=== PATIENT | female | born 1950 | race Caucasian/White ===

== ENCOUNTER 2016-10-14 17:18 | Emergency (ER) | payer BC ==
--- NOTE | 2016-10-14 17:55 | ERPHSYRPT ---
- History of Present Illness Source: patient Exam Limitations: no limitations Patient Subjective Stated Complaint: notified by transplant doctor that her potassium level was low. doctor wanted her evaluated by ed. Triage Nursing Assessment: ambulated to room per self. skin jaundiced, w/d. resp easy. patient denies any symptoms at this time Timing/Duration: today Severity: mild Associated Symptoms: denies symptoms Hx Tetanus, Diphtheria Vaccination/Date Given: No Hx Influenza Vaccination/Date Given: No Hx Pneumococcal Vaccination/Date Given: No <JOHN ROBERTS - Last Filed: 10/14/16 18:52> <NEREIDA VALDEZ - Last Filed: 10/15/16 01:56> - History of Present Illness Time Seen by Provider: 10/14/16 17:25 Physician History: Pt. is quite jaundiced with icteric sclera, but states this is old. (JOHN ROBERTS) Allergies/Adverse Reactions: No Known Drug Allergies Allergy (Verified 10/14/16 17:29) Home Medications: Folic Acid 0.8 mg PO DAILY 06/17/16 [History] Ropinirole 2Mg [Requip 2Mg Tab] 2 mg PO HS 06/17/16 [History] Bumetanide 1 mg [Bumex 1 mg] 1 mg PO BID 10/14/16 [History] PANTOPRAZOLE 40 mg Tablet [Protonix 40MG Tablet] 40 mg PO QPM 10/14/16 [ History] Potassium Chloride 20 Meq [Klor-Con 20 MEQ] 20 meq PO DAILY 10/14/16 [History] Rifaximin [Xifaxan] 550 mg PO BID 10/14/16 [History] Spironolactone [Aldactone] 50 mg PO DAILY 10/14/16 [History] - Review of Systems Constitutional: No Symptoms Eyes: Other (icteric sclera) Ears, Nose, & Throat: No Symptoms Respiratory: No Symptoms Cardiac: No Symptoms Abdominal/Gastrointestinal: No Symptoms Musculoskeletal: No Symptoms Skin: Other (jaundiced) Psychological: No Symptoms Endocrine: No Symptoms Hematologic/Lymphatic: No Symptoms Immunological/Allergic: No Symptoms <JOHN ROBERTS - Last Filed: 10/14/16 18:52> - Past Medical History Pertinent Past Medical History: Yes Neurological History: No Pertinent History ENT History: No Pertinent History Cardiac History: No Pertinent History Respiratory History: No Pertinent History Endocrine Medical History: No Pertinent History Musculoskeletal History: No Pertinent History GI Medical History: Cirrhosis Other Medical History: RESTLESS LEG SYNDROME. hemolytic anemia - Past Surgical History Past Surgical History: Yes Musculoskeletal: Orthopedic Surgery Female Surgical History: Hysterectomy Other Surgical History: rotater cuff right shoulder - Social History Smoking Status: Never smoker Exposure to second hand smoke: Yes Drug Use: none Patient Lives Alone: No <JOHN ROBERTS - Last Filed: 10/14/16 18:52> - Physical Exam General Appearance: no apparent distress Eye Exam: scleral icterus Ears, Nose, Throat Exam: normal ENT inspection Neck Exam: normal inspection, supple, full range of motion Respiratory Exam: normal breath sounds, lungs clear Cardiovascular Exam: regular rate/rhythm, normal heart sounds, normal peripheral pulses Gastrointestinal/Abdomen Exam: soft, normal bowel sounds Extremity Exam: normal inspection, normal range of motion, pelvis stable Neurologic Exam: alert, oriented x 3, cooperative, normal mood/affect Skin Exam: warm, dry, jaundice SpO2 Interpretation: normal SpO2: 99 Oxygen Delivery: Room Air <JOHN ROBERTSBINS - Last Filed: 10/14/16 18:52> - Course Nursing assessment & vital signs reviewed: Yes EKG Interpreted by Me: RATE (82), Right Bundle Branch Block, Other (LAFB. No acute changes.) <ARMANDOJOHN ALDANABINS - Last Filed: 10/14/16 18:52> - Radiology Exams Chest X-ray Interpretation: Interpreted by me (INCREASED BRONCHOVASCULAR MARKINGS.) <NEREIDA VALDEZ - Last Filed: 10/15/16 01:56> Ordered Tests: Active Orders 24 hr Category Date Time Status EKG-ER Only STAT Care 10/14/16 17:52 Active IV Insertion STAT Care 10/14/16 18:01 Active CHEST 1 VIEW (PORTABLE) Stat Exams 10/14/16 17:52 Taken BMP Stat Lab 10/14/16 22:21 Completed BMP Stat Lab 10/15/16 01:31 Completed CBC W DIFF Stat Lab 10/14/16 18:36 Completed CMP Stat Lab 10/14/16 18:36 Completed MAGNESIUM Stat Lab 10/14/16 18:36 Completed MAGNESIUM Stat Lab 10/14/16 22:21 Completed MAGNESIUM Stat Lab 10/15/16 01:31 Completed PROTIME WITH INR Stat Lab 10/14/16 18:36 Completed Respiratory Nebulizer STAT RT 10/15/16 01:55 Active Medication Summary Generic Name Dose Route Start Last Admin Trade Name Serina PRN Reason Stop Dose Admin Potassium Chloride/Sodium Chloride 1,000 mls @ 500 mls/hr 10/14/16 19:30 23:24 Sodium Chloride 0.9% W/ 20 Meq Kcl/Liter IV 11/13/16 19:29 Not Given .Q2H KATIA Sodium Chloride 1,000 mls @ 50 mls/hr 10/14/16 22:45 10/14/16 22:58 Sodium Chloride 0.9% 1000 Ml IV 11/13/16 22:44 50 mls/hr .Q20H KATIA Administration Magnesium Oxide 400 mg 10/15/16 10:00 Mag-Ox 400 PO 11/14/16 09:59 BID KATIA Potassium Chloride 40 meq 10/15/16 10:00 10/14/16 22:54 Potassium Chl 40 Meq/30 Ml Oral Solution PO 11/14/16 09:59 40 meq DAILY KATAI Administration Discontinued Medications Generic Name Dose Route Start Last Admin Trade Name Serina PRN Reason Stop Dose Admin Magnesium Sulfate/Dextrose 100 mls @ 200 mls/hr 10/14/16 19:30 10/14/16 19:37 Magnesium 1 Gm / 100 Ml D5w IV 10/14/16 19:59 200 mls/hr STAT ONE Administration Magnesium Sulfate/Dextrose Confirm 10/14/16 19:37 Magnesium 1 Gm / 100 Ml D5w Administered 10/14/16 19:38 Dose 100 mls @ ud IV .STK-MED ONE Potassium Chloride/Sodium Chloride Confirm 10/14/16 19:37 Sodium Chloride 0.9% W/ 20 Meq Kcl/Liter Administered 10/14/16 19:38 Dose 1,000 mls @ ud IV .STK-MED ONE Magnesium Sulfate/Dextrose 100 mls @ 200 mls/hr 10/14/16 22:42 10/14/16 22:50 Magnesium 1 Gm / 100 Ml D5w IV 10/14/16 23:11 200 mls/hr STAT ONE Administration Potassium Chloride 100 mls @ 50 mls/hr 10/14/16 22:43 10/14/16 23:00 Potassium Chloride 20 Meq In Water 100ml IV 10/15/16 00:42 50 mls/hr STAT ONE Administration Magnesium Sulfate/Dextrose Confirm 10/14/16 22:47 Magnesium 1 Gm / 100 Ml D5w Administered 10/14/16 22:48 Dose 100 mls @ ud IV .STK-MED ONE Sodium Chloride Confirm 10/14/16 22:47 Sodium Chloride 0.9% 1000 Ml Administered 10/14/16 22:48 Dose 1,000 mls @ ud .ROUTE .STK-MED ONE Potassium Chloride Confirm 10/14/16 22:47 Potassium Chloride 20 Meq In Water 100ml Administered 10/14/16 22:48 Dose 100 mls @ ud IV .STK-MED ONE Potassium Chloride Confirm 10/14/16 22:59 Potassium Chloride 20 Meq In Water 100ml Administered 10/14/16 23:00 Dose 100 mls @ ud IV .STK-MED ONE Potassium Chloride/Sodium Chloride Confirm 10/14/16 23:27 Sodium Chloride 0.9% W/ 20 Meq Kcl/Liter Administered 10/14/16 23:28 Dose 1,000 mls @ ud IV .STK-MED ONE Potassium Chloride Confirm 10/14/16 22:47 Potassium Chl 40 Meq/30 Ml Oral Solution Administered 10/14/16 22:48 Dose 40 meq .ROUTE .STK-MED ONE Potassium Chloride 20 meq 10/15/16 01:49 Klor Con 10 Meq PO 10/15/16 01:50 STAT ONE Lab/Rad Data: Laboratory Result Diagrams 10/14/16 18:36 10/15/16 01:31 Laboratory Results 10/15/16 10/14/16 10/14/16 Range/Units 01:31 22:21 18:36 WBC (4.0-10.5) K/mm3 RBC (4.1-5.4) M/mm3 Hgb (12.0-16.0) gm/dl Hct (35-47) % MCV (78-100) fl MCH (26-32) pg MCHC (32-36) g/dl RDW (11.5-14.0) % Plt Count (150-450) K/mm3 MPV (6-9.5) fl Gran % (36.0-66.0) % Lymphocytes % (24.0-44.0) % Monocytes % (0.0-12.0) % Eosinophils % (0.00-5.0) % Basophils % (0.0-0.4) % Basophils # (0-0.4) INR (0.8-3.0) Sodium 137 137 (136-145) mEq/L Potassium 3.4 L 2.7 L* (3.5-5.1) mEq/L Chloride 101 100 (98-107) mEq/L Carbon Dioxide 26.7 27.7 (21-32) mEq/L Anion Gap 12.4 12.4 (5-15) MEQ/L BUN 12 12 (9-20) mg/dL Creatinine 1.35 H 1.33 H (0.55-1.30) mg/dl Estimated GFR 42 43 ML/MIN Glucose 151 H 150 H (70-110) MG/DL Calcium 6.6 L 6.6 L (8.5-10.1) mg/dL Magnesium 1.5 L 1.2 L 1.0 L* (1.8-2.4) mg/dL Total Bilirubin (0.2-1.0) mg/dL AST (15-37) U/L ALT (12-78) U/L Alkaline Phosphatase (46-116) U/L Serum Total Protein (6.4-8.2) gm/dL Albumin (3.4-5.0) g/dL 10/14/16 10/14/16 10/14/16 Range/Units 18:36 18:36 18:36 WBC 7.2 (4.0-10.5) K/mm3 RBC 2.53 L (4.1-5.4) M/mm3 Hgb 9.1 L (12.0-16.0) gm/dl Hct 26.4 L (35-47) % MCV 104.3 H (78-100) fl MCH 35.9 H (26-32) pg MCHC 34.5 (32-36) g/dl RDW 13.5 (11.5-14.0) % Plt Count 109 L (150-450) K/mm3 MPV 9.3 (6-9.5) fl Gran % 60.4 (36.0-66.0) % Lymphocytes % 19.9 L (24.0-44.0) % Monocytes % 15.9 H (0.0-12.0) % Eosinophils % 2.8 (0.00-5.0) % Basophils % 1.0 (0.0-0.4) % Basophils # 0.07 (0-0.4) INR 3.08 H (0.8-3.0) Sodium 136 (136-145) mEq/L Potassium 2.2 L* (3.5-5.1) mEq/L Chloride 96 L (98-107) mEq/L Carbon Dioxide 28.1 (21-32) mEq/L Anion Gap 14.1 (5-15) MEQ/L BUN 11 (9-20) mg/dL Creatinine 1.29 (0.55-1.30) mg/dl Estimated GFR 44 ML/MIN Glucose 154 H (70-110) MG/DL Calcium 7.0 L (8.5-10.1) mg/dL Magnesium (1.8-2.4) mg/dL Total Bilirubin 16.2 H (0.2-1.0) mg/dL AST 44 H (15-37) U/L ALT 15 (12-78) U/L Alkaline Phosphatase 116 (46-116) U/L Serum Total Protein 6.5 (6.4-8.2) gm/dL Albumin 2.2 L (3.4-5.0) g/dL - Progress Progress: unchanged <JOHN ROBERTS - Last Filed: 10/14/16 18:52> <NEREIDA VALDEZ - Last Filed: 10/15/16 01:56> - Progress Progress Note: 10/14/16 19:[address] VALDEZ 1908: SCLERA ICTERIC, EOMI, MOIST mm, LUNGS HAVE SCATTERED RHONCHI AND MINIMAL WHEEZING OVER ALL ROD, NO CARDIAC RUB, ABDOMINAL B.S. NORMAL WITH NO ABDOMINAL TENDERNESS, NO ANKLE EDEMA, ALERT & COOPERATIVE. 10/15/16 01:50 PT REFUSES HOSPITALIZATION. (NEREIDA VALDEZ) <JOHN ROBERTS - Last Filed: 10/14/16 18:52> - Departure Time of Disposition: 01:56 Departure Disposition: Home Critical Care Time: No <NEREIDA VALDEZ - Last Filed: 10/15/16 01:56> - Departure Clinical Impression: HYPOKALEMIA, HYPOMAGNESEMIA, BRONCHITIS, CIRRHOSIS Condition: Fair Referrals: MICHELE MILLER MD [Primary Care Provider] - Instructions: Hypokalemia, Bronchitis Additional Instructions: FOLLOW UP WITH PRIVATE DOCTOR TOMORROW. Prescriptions: Azithromycin 250 mg [Zithromax 250 MG TABLET] 250 mg PO ZPACK #6 tablet
[2016-10-14 18:41] LABS: Eosinophil % 2.8 % (0.00-5.0); Granulocytes % 60.4 % (36.0-66.0); Lymphocytes % 19.9 % (24.0-44.0); Mean Cell Volume 104.3 fl (78-100); Mean Corpuscular Hemoglobin 35.9 pg (26-32); Mean Platelet Volume 9.3 fl (6-9.5); Monocytes % 15.9 % (0.0-12.0); Platelet Count 109 K/mm3 (150-450); Red Blood Count 2.53 M/mm3 (4.1-5.4); Red Cell Distribution Width 13.5 % (11.5-14.0); White Blood Count 7.2 K/mm3 (4.0-10.5)
[2016-10-14 19:13] LABS: INR 3.08 (0.8-3.0); PROTIME 33.4 SECONDS (9.95-12.35)
[2016-10-14 19:23] LABS: ALBUMIN 2.2 g/dL (3.4-5.0); ANION GAP 14.1 MEQ/L (5-15); BILIRUBIN,TOTAL 16.2 mg/dL (0.2-1.0); Carbon Dioxide 28.1 mEq/L (21-32); Total Protein 6.5 gm/dL (6.4-8.2)
[2016-10-14 19:30] LABS: Potassium 2.2 mEq/L (3.5-5.1)
[2016-10-14] MEDS ORDERED: Magnesium 1 Gm / 100 Ml D5W*** 100 ML IV ONE ×4 (19:30→22:47)
[2016-10-14] MEDS ORDERED: Sodium Chloride 0.9% W/ 20 mEq KCl/LITER 1,000 ML IV ONE (19:37)
[2016-10-14] MEDS: Sodium Chloride 0.9% W/ 20 mEq KCl/LITER 1,000 ML IV SCH ×5 (19:38→23:24)
[2016-10-14 22:37] LABS: ANION GAP 12.4 MEQ/L (5-15); Carbon Dioxide 27.7 mEq/L (21-32); MAGNESIUM 1.2 mg/dL (1.8-2.4)
[2016-10-14 22:40] LABS: Potassium 2.7 mEq/L (3.5-5.1)
[2016-10-14] MEDS ORDERED: POTASSIUM CHLORIDE 20 mEq IN WATER 100ML 100 ML IV ONE ×2 (22:43→22:47)
[2016-10-14] MEDS ORDERED: Sodium Chloride 0.9% 1000 ML 1,000 ML IV SCH (22:45)
[2016-10-14] MEDS ORDERED: POTASSIUM CHL 40 MEQ/30 ML ORAL SOLUTION ONE (22:47)
[2016-10-14] MEDS ORDERED: Sodium Chloride 0.9% 1000 ML 1,000 ML ONE (22:47)
[2016-10-14] MEDS: POTASSIUM CHL 40 MEQ/30 ML ORAL SOLUTION PO SCH ×2 (22:49→22:54)
[2016-10-14] MEDS ORDERED: POTASSIUM CHLORIDE 20 mEq IN WATER 100ML 0 ML IV ONE (22:59)
[2016-10-14] MEDS ORDERED: Sodium Chloride 0.9% W/ 20 mEq KCl/LITER 0 ML IV ONE (23:27)
[2016-10-15 01:46] LABS: ANION GAP 12.4 MEQ/L (5-15); Carbon Dioxide 26.7 mEq/L (21-32); MAGNESIUM 1.5 mg/dL (1.8-2.4); Potassium 3.4 mEq/L (3.5-5.1)
[2016-10-15] MEDS ORDERED: Klor Con 10 MEQ PO ONE ×2 (01:49→01:55)
[2016-10-15] MEDS ORDERED: Zithromax 250 MG TABLET PO ONE (01:55)
[2016-10-15] MEDS ORDERED: PROVENTIL 2.5 MG/3 ML NEB IH ONE ×2 (01:55→02:00)
[2016-10-15] MEDS ORDERED: Zithromax 250 MG TABLET ONE (01:55)
[2016-10-15] MEDS ORDERED: MAG-OX 400 ONE (01:55)
[2016-10-15 03:07] VITALS: BP 86/55; PULSE 78; O2SAT 96
--- NOTE | 2016-10-15 08:39 | XRAY ---
Indication: Hypokalemia. Comparison: None Portable chest demonstrate right hemidiaphragm elevation with adjacent infiltrate/atelectasis and small hiatal hernia. Remaining heart and left lung unremarkable. Bony thorax intact with mild osteopenia and degenerative changes.
[2016-10-15] MEDS ORDERED: MAG-OX 400 PO SCH (10:00)
== END 2016-10-15 02:55 | disposition home or self-care (01) ==
LOC: ED 17:18
DX: E87.6 Hypokalemia (principal); E83.42 Hypomagnesemia; J40 Bronchitis, not specified as acute or chronic; K74.60 Unspecified cirrhosis of liver; R17 Unspecified jaundice; Z79.899 Other long term (current) drug therapy
CPT/HCPCS: 36000; 36415; 71010; 80048; 80053; 83735; 85025; 85610; 93005; 94640; 96360; 96361; 96365; 96366; 96367; 96368; 99285; J3475; J3480; A9270-GY

== ENCOUNTER 2016-12-05 23:39 | Emergency (ER) | payer BC ==
[2016-12-05] MEDS ORDERED: Pepcid 20 MG VIAL IV ONE (23:59)
[2016-12-05] MEDS ORDERED: Zofran 4 MG/2 ML VIAL IV ONE (23:59)
--- NOTE | 2016-12-06 00:05 | ERPHSYRPT ---
- History of Present Illness Time Seen by Provider: 12/05/16 23:54 Source: patient Physician History: CC: vomiting Hx: 66 y/o patient of Dr Miller with hx of alcohol cirrhosis. No alcohol use for the past year. Sees hepatology at [facility]. She has vomited some meds this week. Has profuse vomiting since 8PM tonite with dark colored black liquid. No real abd pain. No fever or chills. She is chronically jaundiced. She is hoping to enter the liver transplant list soon at [facility]. Timing/Duration: today Severity: severe Allergies/Adverse Reactions: No Known Drug Allergies Allergy (Verified 10/14/16 17:29) Home Medications: Folic Acid 0.8 mg PO DAILY 06/17/16 [History] Bumetanide 1 mg [Bumex 1 mg] 1 mg PO BID 10/14/16 [History] PANTOPRAZOLE 40 mg Tablet [Protonix 40MG Tablet] 40 mg PO QPM 10/14/16 [ History] Potassium Chloride 20 Meq [Klor-Con 20 MEQ] 20 meq PO DAILY 10/14/16 [History] Rifaximin [Xifaxan] 550 mg PO BID 10/14/16 [History] Spironolactone [Aldactone] 50 mg PO DAILY 10/14/16 [History] Lactulose 10 gm PO BID 12/06/16 [History] Magnesium [Magnesium Gluconate] 500 mg DAILY 12/06/16 [History] Metoprolol Tartrate 12.5 mg BID 12/06/16 [History] Ondansetron HCl [Zofran] 4 mg PO DAILY 12/06/16 [History] Ropinirole 2Mg [Requip 2Mg Tab] 1 tab HS 12/06/16 [History] Zinc Sulfate 1 tab BID 12/06/16 [History] Hx Tetanus, Diphtheria Vaccination/Date Given: No Hx Influenza Vaccination/Date Given: No Hx Pneumococcal Vaccination/Date Given: No - Review of Systems Constitutional: Fatigue, Malaise, Weakness, No Fever, No Chills Eyes: No Symptoms, No Vision Changes Ears, Nose, & Throat: No Symptoms Respiratory: No Cough, No Dyspnea Cardiac: No Chest Pain, No Syncope Abdominal/Gastrointestinal: Nausea, Vomiting, No Abdominal Pain Genitourinary Symptoms: No Dysuria Musculoskeletal: No Back Pain, No Neck Pain Skin: No Rash Neurological: No Headache All Other Systems: Reviewed and Negative - Past Medical History Pertinent Past Medical History: Yes Neurological History: No Pertinent History ENT History: No Pertinent History Cardiac History: No Pertinent History Respiratory History: No Pertinent History Endocrine Medical History: No Pertinent History Musculoskeletal History: No Pertinent History GI Medical History: Cirrhosis Other Medical History: RESTLESS LEG SYNDROME. hemolytic anemia - Past Surgical History Past Surgical History: Yes Musculoskeletal: Orthopedic Surgery Female Surgical History: Hysterectomy Other Surgical History: rotater cuff right shoulder - Social History Smoking Status: Never smoker Exposure to second hand smoke: Yes Drug Use: none Patient Lives Alone: No - Nursing Vital Signs Nursing Vital Signs: Initial Vital Signs Temperature 99 F Temperature Source Rectal Pulse Rate 126 Respiratory Rate 20 Blood Pressure [] 83/40 Pain Intensity 0 - Physical Exam General Appearance: alert Eye Exam: PERRL/EOMI, scleral icterus Ears, Nose, Throat Exam: normal ENT inspection, dry mucous membranes Neck Exam: normal inspection, non-tender, supple Respiratory Exam: normal breath sounds Cardiovascular Exam: regular rate/rhythm, murmur, tachycardia Gastrointestinal/Abdomen Exam: soft, No tenderness, No distention, No mass, No guarding Back Exam: normal inspection, normal range of motion Extremity Exam: normal inspection, normal range of motion Neurologic Exam: alert, oriented x 3, cooperative, sensation nml, No motor deficits Skin Exam: warm, jaundice - Course Nursing assessment & vital signs reviewed: Yes EKG Interpreted by Me: RATE (122), Sinus Tach, NORMAL AXIS, prolonged QT interval (QTc 497), Non-specific ST Changes (anterior ST depression) - Radiology Exams AAS X-ray Interpretation: Reviewed by me (CM, right atrial enlargement, nonspecific bowel gas, no free air) - CT Exams abd/pelvis CT Interpretation: Tele-radiologist Report (large hiatal hernia, cirrhotic liver with ascites and splenomegaly suggesting portal hypertension, colonic diverticulosis without itis) Ordered Tests: Active Orders 24 hr Category Date Time Status Cath for Specimen-Straight STAT Care 12/06/16 23:59 Active EKG-ER Only STAT Care 12/05/16 23:59 Active IV Insertion STAT Care 12/05/16 23:59 Active IV Insertion-2nd Peripheral STAT Care 12/06/16 00:50 Active NPO (ED) STAT Care 12/05/16 23:59 Active Obtain Stool Specimen ASORD Care 12/06/16 01:32 Active Oxygen-ED Only NASAL CANNULA 2 lpm Care 12/06/16 03:01 Active ABDOMEN AND PELVIS W/0 CONTRAS [CT] Stat Exams 12/06/16 01:03 Taken OBSTR/ACUTE ABDOMEN SERIES Stat Exams 12/06/16 00:00 Taken BLOOD CULTURE Stat Lab 12/06/16 01:22 Received BMP Stat Lab 12/05/16 23:59 Completed CBC Stat Lab 12/06/16 02:45 Completed CBC W DIFF Stat Lab 12/05/16 23:59 Completed CULTURE,URINE Stat Lab 12/06/16 00:45 Received Hepatic Function Panel Stat Lab 12/05/16 23:59 Completed LIPASE Stat Lab 12/05/16 23:59 Completed Lactic Acid Stat Lab 12/05/16 23:59 Completed Lactic Acid Stat Lab 12/06/16 01:47 Completed Lactic Acid Stat Lab 12/06/16 01:59 Ordered MAGNESIUM Stat Lab 12/06/16 00:05 Completed Occult Blood,Stool Other Stat Lab 12/06/16 01:20 Completed PROTIME WITH INR Stat Lab 12/05/16 23:59 Completed UA W/ MICROSCOPIC Stat Lab 12/06/16 00:45 Completed Medication Summary Generic Name Dose Route Start Last Admin Trade Name Freq PRN Reason Stop Dose Admin Pantoprazole Sodium 80 mg/ 500 mls @ 50 mls/hr 12/06/16 03:15 Sodium Chloride IV 01/05/17 03:14 .Q10H KATIA Discontinued Medications Generic Name Dose Route Start Last Admin Trade Name Freq PRN Reason Stop Dose Admin Famotidine 20 mg 12/05/16 23:59 12/06/16 00:11 Pepcid 20 Mg Vial IV 12/06/16 00:00 20 mg STAT ONE Administration Famotidine Confirm 12/06/16 00:09 Pepcid 20 Mg Vial Administered 12/06/16 00:10 Dose 20 mg IV .STK-MED ONE Sodium Chloride 500 mls @ 999 mls/hr 12/05/16 23:59 12/06/16 00:11 Sodium Chloride 0.9% 1000 Ml IV 12/06/16 00:29 999 mls/hr .Q31M STA Administration Sodium Chloride Confirm 12/06/16 00:09 Sodium Chloride 0.9% 1000 Ml Administered 12/06/16 00:10 Dose 1,000 mls @ ud .ROUTE .STK-MED ONE Ampicillin Sodium/Sulbactam Sodium 100 mls @ 100 mls/hr 12/06/16 01:05 01:50 Unasyn 1.5gm / Nacl 100ml IV 12/06/16 02:04 100 mls/hr STAT ONE Administration Sodium Chloride 1,000 mls @ 999 mls/hr 12/06/16 01:04 12/06/16 01:50 Sodium Chloride 0.9% 1000 Ml IV 12/06/16 02:04 999 mls/hr .Q1H1M STA Administration Sodium Chloride Confirm 12/06/16 01:36 Sodium Chloride 0.9% 1000 Ml Administered 12/06/16 01:37 Dose 1,000 mls @ ud .ROUTE .STK-MED ONE Ampicillin Sodium/Sulbactam Sodium Confirm 12/06/16 01:36 Unasyn 1.5gm / Nacl 100ml Administered 12/06/16 01:37 Dose 100 mls @ ud .ROUTE .STK-MED ONE Metoclopramide HCl 5 mg 12/06/16 02:42 12/06/16 02:58 Reglan 10 Mg/2 Ml IV 12/06/16 02:43 5 mg STAT ONE Administration Metoclopramide HCl Confirm 12/06/16 02:55 Reglan 10 Mg/2 Ml Administered 12/06/16 02:56 Dose 10 mg .ROUTE .STK-MED ONE Octreotide Acetate 50 mcg 12/06/16 03:17 Sandostatin 50mcg/Ml IV 12/06/16 03:18 STAT ONE Ondansetron HCl 4 mg 12/05/16 23:59 12/06/16 00:11 Zofran 4 Mg/2 Ml Vial IV 12/06/16 00:00 4 mg STAT ONE Administration Ondansetron HCl Confirm 12/06/16 00:09 Zofran 4 Mg/2 Ml Vial Administered 12/06/16 00:10 Dose 4 mg .ROUTE .STK-MED ONE Pantoprazole Sodium 40 mg 12/06/16 02:59 12/06/16 03:17 Protonix 40 Mg Iv IV 12/06/16 03:00 40 mg STAT ONE Administration Pantoprazole Sodium Confirm 12/06/16 03:10 Protonix 40 Mg Iv Administered 12/06/16 03:11 Dose 40 mg IV .STK-MED ONE Lab/Rad Data: Laboratory Result Diagrams 12/06/16 02:45 12/06/16 00:05 Laboratory Results 12/06/16 12/06/16 12/06/16 Range/Units 02:45 01:47 01:20 WBC 8.4 (4.0-10.5) K/mm3 RBC 1.67 L* (4.1-5.4) M/mm3 Hgb 6.0 L* (12.0-16.0) gm/dl Hct 18.1 L (35-47) % MCV 108.4 H (78-100) fl MCH 35.9 H (26-32) pg MCHC 33.1 (32-36) g/dl RDW 14.2 H (11.5-14.0) % Plt Count 95 L (150-450) K/mm3 MPV 8.7 (6-9.5) fl Gran % (36.0-66.0) % Lymphocytes % (24.0-44.0) % Monocytes % (0.0-12.0) % Eosinophils % (0.00-5.0) % Basophils % (0.0-0.4) % Basophils # (0-0.4) INR (0.8-3.0) Sodium (136-145) mEq/L Potassium (3.5-5.1) mEq/L Chloride (98-107) mEq/L Carbon Dioxide (21-32) mEq/L Anion Gap (5-15) MEQ/L BUN (9-20) mg/dL Creatinine (0.55-1.30) mg/dl Estimated GFR ML/MIN Glucose (70-110) MG/DL Lactic Acid 2.6 H (0.4-2.0) Calcium (8.5-10.1) mg/dL Magnesium (1.8-2.4) mg/dL Total Bilirubin (0.2-1.0) mg/dL Direct Bilirubin (0.0-0.2) MG/DL AST (15-37) U/L ALT (12-78) U/L Alkaline Phosphatase (46-116) U/L Ammonia (11-32) MMOL/l Serum Total Protein (6.4-8.2) gm/dL Albumin (3.4-5.0) g/dL Lipase (73-393) U/L Ur Collection Type Urine Color (YELLOW) Urine Appearance (CLEAR) Urine pH (5-6) Ur Specific Morris (1.005-1.025) Urine Protein (Negative) Urine Glucose (UA) (NEGATIVE) mg/dL Urine Ketones (NEGATIVE) Urine Nitrite (NEGATIVE) Urine Bilirubin (NEGATIVE) Urine Urobilinogen (0-1) mg/dL Urine WBC (Auto) (NEGATIVE) Urine RBC (Auto) (0-5) Kye/ul Urine Microscopic RBC (0-2) /HPF Ur Epithelial Cells (FEW) /HPF Urine Bacteria (NEGATIVE) /HPF Stool Occult Blood NEGATIVE (Negative) Specimen Received ABO Group Rh Factor Antibody Screen (NEGATIVE) Crossmatch (COMPATIBLE) 12/06/16 12/06/16 12/06/16 Range/Units 00:45 00:05 00:05 WBC (4.0-10.5) K/mm3 RBC (4.1-5.4) M/mm3 Hgb (12.0-16.0) gm/dl Hct (35-47) % MCV (78-100) fl MCH (26-32) pg MCHC (32-36) g/dl RDW (11.5-14.0) % Plt Count (150-450) K/mm3 MPV (6-9.5) fl Gran % (36.0-66.0) % Lymphocytes % (24.0-44.0) % Monocytes % (0.0-12.0) % Eosinophils % (0.00-5.0) % Basophils % (0.0-0.4) % Basophils # (0-0.4) INR (0.8-3.0) Sodium (136-145) mEq/L Potassium (3.5-5.1) mEq/L Chloride (98-107) mEq/L Carbon Dioxide (21-32) mEq/L Anion Gap (5-15) MEQ/L BUN (9-20) mg/dL Creatinine (0.55-1.30) mg/dl Estimated GFR ML/MIN Glucose (70-110) MG/DL Lactic Acid (0.4-2.0) Calcium (8.5-10.1) mg/dL Magnesium (1.8-2.4) mg/dL Total Bilirubin (0.2-1.0) mg/dL Direct Bilirubin (0.0-0.2) MG/DL AST (15-37) U/L ALT (12-78) U/L Alkaline Phosphatase (46-116) U/L Ammonia (11-32) MMOL/l Serum Total Protein (6.4-8.2) gm/dL Albumin (3.4-5.0) g/dL Lipase (73-393) U/L Ur Collection Type CATH Urine Color HUMERA (YELLOW) Urine Appearance CLEAR (CLEAR) Urine pH 5.0 (5-6) Ur Specific Morris 1.015 (1.005-1.025) Urine Protein NEGATIVE (Negative) Urine Glucose (UA) NEGATIVE (NEGATIVE) mg/dL Urine Ketones NEGATIVE (NEGATIVE) Urine Nitrite NEGATIVE (NEGATIVE) Urine Bilirubin MODERATE (NEGATIVE) Urine Urobilinogen 1 (0-1) mg/dL Urine WBC (Auto) NEGATIVE (NEGATIVE) Urine RBC (Auto) SMALL (0-5) Kye/ul Urine Microscopic RBC 2-5 (0-2) /HPF Ur Epithelial Cells RARE (FEW) /HPF Urine Bacteria FEW (NEGATIVE) /HPF Stool Occult Blood (Negative) Specimen Received 12/06/16:0045 ABO Group Rh Factor Antibody Screen (NEGATIVE) Crossmatch COMPATIBLE COMPATIBLE (COMPATIBLE) 12/06/16 12/06/16 12/06/16 Range/Units 00:05 00:05 00:05 WBC (4.0-10.5) K/mm3 RBC (4.1-5.4) M/mm3 Hgb (12.0-16.0) gm/dl Hct (35-47) % MCV (78-100) fl MCH (26-32) pg MCHC (32-36) g/dl RDW (11.5-14.0) % Plt Count (150-450) K/mm3 MPV (6-9.5) fl Gran % (36.0-66.0) % Lymphocytes % (24.0-44.0) % Monocytes % (0.0-12.0) % Eosinophils % (0.00-5.0) % Basophils % (0.0-0.4) % Basophils # (0-0.4) INR 3.00 (0.8-3.0) Sodium (136-145) mEq/L Potassium (3.5-5.1) mEq/L Chloride (98-107) mEq/L Carbon Dioxide (21-32) mEq/L Anion Gap (5-15) MEQ/L BUN (9-20) mg/dL Creatinine (0.55-1.30) mg/dl Estimated GFR ML/MIN Glucose (70-110) MG/DL Lactic Acid (0.4-2.0) Calcium (8.5-10.1) mg/dL Magnesium (1.8-2.4) mg/dL Total Bilirubin (0.2-1.0) mg/dL Direct Bilirubin (0.0-0.2) MG/DL AST (15-37) U/L ALT (12-78) U/L Alkaline Phosphatase (46-116) U/L Ammonia 79 H (11-32) MMOL/l Serum Total Protein (6.4-8.2) gm/dL Albumin (3.4-5.0) g/dL Lipase (73-393) U/L Ur Collection Type Urine Color (YELLOW) Urine Appearance (CLEAR) Urine pH (5-6) Ur Specific Morris (1.005-1.025) Urine Protein (Negative) Urine Glucose (UA) (NEGATIVE) mg/dL Urine Ketones (NEGATIVE) Urine Nitrite (NEGATIVE) Urine Bilirubin (NEGATIVE) Urine Urobilinogen (0-1) mg/dL Urine WBC (Auto) (NEGATIVE) Urine RBC (Auto) (0-5) Kye/ul Urine Microscopic RBC (0-2) /HPF Ur Epithelial Cells (FEW) /HPF Urine Bacteria (NEGATIVE) /HPF Stool Occult Blood (Negative) Specimen Received ABO Group O Rh Factor POSITIVE Antibody Screen NEGATIVE (NEGATIVE) Crossmatch (COMPATIBLE) 12/06/16 12/06/16 12/05/16 Range/Units 00:05 00:05 23:59 WBC 10.5 (4.0-10.5) K/mm3 RBC 1.99 L (4.1-5.4) M/mm3 Hgb 7.1 L (12.0-16.0) gm/dl Hct 21.4 L (35-47) % MCV 107.5 H (78-100) fl MCH 35.6 H (26-32) pg MCHC 33.2 (32-36) g/dl RDW 14.4 H (11.5-14.0) % Plt Count 121 L (150-450) K/mm3 MPV 9.0 (6-9.5) fl Gran % 64.8 (36.0-66.0) % Lymphocytes % 17.0 L (24.0-44.0) % Monocytes % 15.6 H (0.0-12.0) % Eosinophils % 1.5 (0.00-5.0) % Basophils % 1.1 (0.0-0.4) % Basophils # 0.12 (0-0.4) INR (0.8-3.0) Sodium 134 L (136-145) mEq/L Potassium 4.6 (3.5-5.1) mEq/L Chloride 97 L (98-107) mEq/L Carbon Dioxide 28.2 (21-32) mEq/L Anion Gap 13.7 (5-15) MEQ/L BUN 22 H (9-20) mg/dL Creatinine 1.32 H (0.55-1.30) mg/dl Estimated GFR 43 ML/MIN Glucose 90 (70-110) MG/DL Lactic Acid 2.8 H (0.4-2.0) Calcium 8.9 (8.5-10.1) mg/dL Magnesium 1.4 L (1.8-2.4) mg/dL Total Bilirubin 10.3 H (0.2-1.0) mg/dL Direct Bilirubin 6.05 H (0.0-0.2) MG/DL AST 31 (15-37) U/L ALT 13 (12-78) U/L Alkaline Phosphatase 145 H (46-116) U/L Ammonia (11-32) MMOL/l Serum Total Protein 6.1 L (6.4-8.2) gm/dL Albumin 2.4 L (3.4-5.0) g/dL Lipase 186 (73-393) U/L Ur Collection Type Urine Color (YELLOW) Urine Appearance (CLEAR) Urine pH (5-6) Ur Specific Morris (1.005-1.025) Urine Protein (Negative) Urine Glucose (UA) (NEGATIVE) mg/dL Urine Ketones (NEGATIVE) Urine Nitrite (NEGATIVE) Urine Bilirubin (NEGATIVE) Urine Urobilinogen (0-1) mg/dL Urine WBC (Auto) (NEGATIVE) Urine RBC (Auto) (0-5) Kye/ul Urine Microscopic RBC (0-2) /HPF Ur Epithelial Cells (FEW) /HPF Urine Bacteria (NEGATIVE) /HPF Stool Occult Blood (Negative) Specimen Received ABO Group Rh Factor Antibody Screen (NEGATIVE) Crossmatch (COMPATIBLE) - Progress Progress Note: 12/06/16 01:15 HR some better but still tachycardic after IVF. Will give 30ml/kg to cover for sepsis. Cultures sent and will give empiric unasyn. Called Dr Miller who advised transfer to [facility] as she sees hepatology there and needs complicated GI care not available here or in [place]. 12/06/16 01:45 SEPSIS REASSESSMENT: 83/41 (60); HR 126; RR 16; Temp 99 ;O2 sat 99% RA Repeat lactic acid: 2.6. Awake, alert, oriented. Lungs clear Cor regular with tachycardia Skin yellow jaundice, warm Pulses: 3+ DP, 2+ radial bilateral Await [facility] one call. IVF bolus in progress. 12/06/16 02:51 Still await [facility] one call for physician contact. Hg down to 6. Still tachycardic. No fever. Will transfuse for suspected GI bleeding. Discussed risks and benefits of blood transfusion to include infection, allergic reaction. Pt has had prior transfusion in [place] with no untoward reaction. 12/06/16 03:18 Some nausea but no further emesis. Spoke to Dr Carmine BLACKBURN hepatology and Dr Mayo ICU. They advised protonix gtt, octreotide 50 mcg bolus and 50 mcg/ hr gtt. Pt aware of transfer to . Counseled pt/family regarding: lab results, diagnosis, need for follow-up, rad results - Departure Time of Disposition: 03:21 Departure Disposition: Transfer ([facility]) Clinical Impression: upper GI variceal bleeding, Cirrhosis, hypotensive shock, Anemia Condition: Serious Critical Care Time: Yes Critical Care Time(excluding separately billable procedures): 75-104 minutes Referrals: MICHELE MILLER MD [Primary Care Provider] -
[2016-12-06 00:09] LABS: Lactic Acid 2.8 (0.4-2.0)
[2016-12-06] MEDS ORDERED: Sodium Chloride 0.9% 1000 ML 1,000 ML ONE ×3 (00:09→03:26)
[2016-12-06] MEDS ORDERED: Zofran 4 MG/2 ML VIAL ONE (00:09)
[2016-12-06] MEDS ORDERED: Pepcid 20 MG VIAL IV ONE (00:09)
[2016-12-06 00:28] LABS: PROTIME 32.5 SECONDS (9.95-12.35)
[2016-12-06 00:31] LABS: BASOPHIL % 1.1 % (0.0-0.4); Eosinophil % 1.5 % (0.00-5.0); Granulocytes % 64.8 % (36.0-66.0); Mean Cell Volume 107.5 fl (78-100); Monocytes % 15.6 % (0.0-12.0); Platelet Count 121 K/mm3 (150-450); Red Blood Count 1.99 M/mm3 (4.1-5.4); Red Cell Distribution Width 14.4 % (11.5-14.0); White Blood Count 10.5 K/mm3 (4.0-10.5)
[2016-12-06 00:32] LABS: Mean Corpuscular Hemoglobin 35.6 pg (26-32)
[2016-12-06 00:38] LABS: ALBUMIN 2.4 g/dL (3.4-5.0); ANION GAP 13.7 MEQ/L (5-15); BILIRUBIN,TOTAL 10.3 mg/dL (0.2-1.0); Carbon Dioxide 28.2 mEq/L (21-32); Direct Bilirubin 6.05 MG/DL (0.0-0.2); MAGNESIUM 1.4 mg/dL (1.8-2.4); Potassium 4.6 mEq/L (3.5-5.1); Total Protein 6.1 gm/dL (6.4-8.2)
[2016-12-06] MEDS ORDERED: Sodium Chloride 0.9% 1000 ML 1,000 ML IV STA (01:04)
[2016-12-06] MEDS ORDERED: Unasyn 1.5GM / NaCl 100ML 100 ML IV ONE (01:05)
[2016-12-06 01:08] LABS: Bacteria FEW /HPF (NEGATIVE); COMPLETE URINE MICROSCOPIC? YES; Collection Type CATH; Epithelial Cells RARE /HPF (FEW)
[2016-12-06] MEDS ORDERED: Unasyn 1.5GM / NaCl 100ML 100 ML ONE (01:36)
[2016-12-06] MEDS ORDERED: Reglan 10 MG/2 ML IV ONE ×2 (02:42→03:53)
[2016-12-06 02:51] LABS: Mean Cell Volume 108.4 fl (78-100); Mean Corpuscular Hemoglobin 35.9 pg (26-32); Mean Platelet Volume 8.7 fl (6-9.5); Platelet Count 95 K/mm3 (150-450); Red Cell Distribution Width 14.2 % (11.5-14.0); White Blood Count 8.4 K/mm3 (4.0-10.5)
[2016-12-06 02:53] LABS: Red Blood Count 1.67 M/mm3 (4.1-5.4)
[2016-12-06] MEDS ORDERED: Reglan 10 MG/2 ML ONE ×2 (02:55→04:07)
[2016-12-06] MEDS ORDERED: PROTONIX 40 MG IV IV ONE ×2 (02:59→03:10)
[2016-12-06 03:13] VITALS: PULSE 126
[2016-12-06] MEDS ORDERED: PROTONIX 40 MG IV*** 80 MG in Sodium Chloride 0.9% 500 ML 500 ML IV SCH (03:15)
[2016-12-06] MEDS ORDERED: SANDOSTATIN 50MCG/ML IV ONE (03:17)
[2016-12-06] MEDS ORDERED: Sodium Chloride 0.9% 500 ML 500 ML IV ONE (03:42)
[2016-12-06] MEDS ORDERED: Sodium Chloride 0.9% 250 ML 250 ML IV ONE (03:48)
[2016-12-06 04:04] VITALS: BP 93/50; O2SAT 99
--- NOTE | 2016-12-06 09:26 | XRAY ---
Indication: Nausea and vomiting. History of cirrhosis. Multiple contiguous axial images obtained through the abdomen and pelvis without contrast as ordered. Comparison: None Lung bases hyperinflated with minimal bibasilar atelectasis/scarring. Heart is not enlarged. Large hiatal hernia with partial intrathoracic stomach and small ascites. Abdomen and pelvis demonstrates moderate diffuse ascites. No free air. Cirrhotic liver and 14.5 cm splenomegaly. Incidental hepatic/splenic calcified granulomas. Previous hysterectomy. Noncontrasted stomach and bowel loops are mildly fluid distended with some fluid leveling, ileus versus gastroenteritis. No focal bowel dilatation or obstruction. Mild sigmoid diverticulosis. Remaining gallbladder, pancreas, adrenal glands, kidneys, ureters, and bladder appear unremarkable for noncontrast exam. Mild aortoiliac calcifications without AAA. Osseous structures intact with mild levorotoscoliosis. Impression: 1. Cirrhotic liver with resulting abdominal/pelvic ascites and splenomegaly. 2. Fluid distended stomach and small bowel loops, ileus versus gastroenteritis. 3. Large hiatal hernia with partial intrathoracic stomach and ascites. 4. Incidental sigmoid diverticulosis and hepatic/splenic calcified granulomas. Comment: Preliminary interpretation was made by [facility]. No critical discrepancy. CT DI 8.69
--- NOTE | 2016-12-06 09:30 | XRAY ---
Indication: Vomiting. History of cirrhosis. Comparison: Portable chest October 14, 2016. 2 views of the abdomen suggestive of diffuse ascites with little bowel gas. No focal bowel dilatation or free air. Solid organs poorly visualized. Osseous structures intact. Single portable chest again demonstrates right hemidiaphragm elevation with adjacent infiltrate/atelectasis and hiatal hernia. Heart is not enlarged. No new cardiopulmonary abnormalities. Impression: 1. Abdominal ascites. 2. Paucity of bowel gas without focal bowel dilatation or obstruction. 3. Stable chest with chronic features.
== END 2016-12-06 04:05 | disposition short-term general hospital (02) ==
LOC: ED 23:39
DX: K92.2 Gastrointestinal hemorrhage, unspecified (principal); K74.60 Unspecified cirrhosis of liver; I95.89 Other hypotension; R57.8 Other shock; D64.9 Anemia, unspecified; R11.10 Vomiting, unspecified; R17 Unspecified jaundice; R11.0 Nausea; Z79.899 Other long term (current) drug therapy
CPT/HCPCS: 36000; 36415; 36430; 74022; 74176; 80048; 80076; 81000; 82140; 82271; 82272; 83605; 83690; 83735; 85025; 85027; 85610; 86850; 86900; 86901; 86922; 87040; 87086; 93005; 93041; 96360; 96365; 96374; 96375; 96376; 99291; 99292; J0295; J2354; J2405; P9016; P9612

== ENCOUNTER 2018-02-15 05:59 | Emergency (ER) | payer MEDICARE, OTHER ==
[2018-02-15 06:10] VITALS: BP 131/87; PULSE 84; O2SAT 98
[2018-02-15] MEDS ORDERED: NEOSYNEPHRINE 0.5% NASAL SPRAY/DROPS ONE (06:13)
[2018-02-15] MEDS ORDERED: NEOSYNEPHRINE 0.5% NASAL SPRAY/DROPS NS ONE (06:17)
--- NOTE | 2018-02-15 06:26 | ERPHSYRPT ---
- History of Present Illness Time Seen by Provider: 02/15/18 06:09 Source: patient Exam Limitations: no limitations Patient Subjective Stated Complaint: patient woke up to severe nose bleed unable to get bleeding stopped Triage Nursing Assessment: pt alert nad orientedx3, able to ambulate by self, bleeding heavily out of left nostril , applied nose clip and ice pack patinet sitting. no trauma or injury to nose patient was lseeping and woke up to nose bleeding Physician History: This is a 67-year-old white female who arrives with complaint of nosebleed for approximately 15 minutes prior to arrival she states she spontaneously began to have a bleed from her nose left naris. She denies any trauma. Past medical history includes restless legs, cirrhosis, patient has had a liver transplant. Past surgical history includes liver transplant, hysterectomy, rotator cuff surgery. Timing/Duration: today (15 minutes) Severity: mild Modifying Factors: Improves With: nothing Associated Symptoms: No nausea, No vomiting, No abdominal pain, No shortness of breath, No heartburn, No diaphoresis, No cough, No chills, No chest pain, No fever, No headaches, No loss of appetite, No malaise, No rash, No syncope, No seizure Allergies/Adverse Reactions: No Known Drug Allergies Allergy (Verified 10/14/16 17:29) Hx Tetanus, Diphtheria Vaccination/Date Given: No Hx Influenza Vaccination/Date Given: No Hx Pneumococcal Vaccination/Date Given: No Immunizations Up to Date: Yes - Review of Systems Constitutional: No Fever, No Chills Eyes: No Symptoms Ears, Nose, & Throat: Epistaxis (bleeding from left naris ), No Ear Pain, No Ear Discharge, No Hearing Changes, No Tinnitus, No Nose Pain, No Nose Congestion , No Nose Discharge, No Sinus Drainage, No Mouth Pain, No Mouth Swelling, No Throat Pain, No Throat Swelling, No Painful Swallowing, No Snoring Respiratory: No Symptoms, No Dyspnea Cardiac: No Chest Pain, No Edema, No Syncope Abdominal/Gastrointestinal: No Abdominal Pain, No Nausea, No Vomiting, No Diarrhea Genitourinary Symptoms: No Dysuria Musculoskeletal: No Back Pain, No Neck Pain Skin: No Rash Neurological: No Dizziness, No Focal Weakness, No Sensory Changes Psychological: No Symptoms Endocrine: No Symptoms All Other Systems: Reviewed and Negative - Past Medical History Pertinent Past Medical History: Yes Neurological History: No Pertinent History ENT History: No Pertinent History Cardiac History: No Pertinent History Respiratory History: No Pertinent History Endocrine Medical History: Liver Disease Musculoskeletal History: Arthritis GI Medical History: Cirrhosis History: No Pertinent History Psycho-Social History: No Pertinent History Female Reproductive Disorders: No Pertinent History Other Medical History: Hx of R RTC repair - Past Surgical History Past Surgical History: Yes Neuro Surgical History: No Pertinent History Cardiac: No Pertinent History Respiratory: No Pertinent History Gastrointestinal: No Pertinent History Genitourinary: No Pertinent History Musculoskeletal: Orthopedic Surgery Female Surgical History: Hysterectomy Other Surgical History: rotater cuff right shoulder, liver transplant - Social History Smoking Status: Never smoker Exposure to second hand smoke: Yes Drug Use: none Patient Lives Alone: No - Female History Hx Now: No - Nursing Vital Signs Nursing Vital Signs: Initial Vital Signs Temperature 97.8 F 02/15/18 05:59 Pulse Rate 84 02/15/18 05:59 Respiratory Rate 16 02/15/18 05:59 Blood Pressure 131/87 02/15/18 05:59 O2 Sat by Pulse Oximetry 98 02/15/18 05:59 Pain Scale Pain Intensity 2 - Physical Exam General Appearance: mild distress Eye Exam: PERRL/EOMI, eyes nml inspection Ears, Nose, Throat Exam: other (small amount of blood in left naris, active bleeding on arrival) Neck Exam: normal inspection, non-tender, supple, full range of motion Respiratory Exam: normal breath sounds, lungs clear, No respiratory distress Cardiovascular Exam: regular rate/rhythm, normal heart sounds, normal peripheral pulses Gastrointestinal/Abdomen Exam: soft, normal bowel sounds, No tenderness, No mass Back Exam: normal inspection, normal range of motion, No CVA tenderness, No vertebral tenderness Extremity Exam: normal inspection, normal range of motion, pelvis stable Neurologic Exam: alert, oriented x 3, 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, 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 as tested, normal mood/affect, nml cerebellar function, nml station & gait, sensation nml, No motor deficits SpO2 Interpretation: normal (9 him8%) SpO2: 98 Oxygen Delivery: Room Air - Course Nursing assessment & vital signs reviewed: Yes Ordered Tests: Medication Summary Discontinued Medications Generic Name Dose Route Start Last Admin Trade Name Freq PRN Reason Stop Dose Admin Acetaminophen 650 mg 02/15/18 06:35 02/15/18 06:39 Tylenol 325 Mg PO 02/15/18 06:36 650 mg STAT ONE Administration Acetaminophen Confirm 02/15/18 06:38 Tylenol 325 Mg Administered 02/15/18 06:39 Dose 650 mg .ROUTE .STK-MED ONE Phenylephrine HCl Confirm 02/15/18 06:13 Neosynephrine 0.5% Nasal [place]/Drops Administered 02/15/18 06:14 Dose 15 ml .ROUTE .STK-MED ONE Phenylephrine HCl 15 ml 02/15/18 06:17 02/15/18 06:23 Neosynephrine 0.5% Nasal [place]/Drops NS 02/15/18 06:18 15 ml STAT ONE Administration - Progress Progress: improved Progress Note: 02/15/18 06:24 67-year-old white female with a history of cirrhosis and liver transplant. Arrives with 15 minutes of bleeding from the left naris. On arrival patient is given cold packs to the bridge of her nose as well as nasal clip after having her blow her nose. When I inspect the patient's nose I see a small amount of blood in the naris no active bleeding. The patient does not appear to have a posterior bleed throat is clear. Clip was left on for several minutes thereafter he has some Afrin 0.5% 2 sprays her sprayed into the patient's left naris. Clip is reapplied. Will recheck patient in several minutes it appears that the bleeding is stopped. 02/15/18 06:37 nose clip removed no further bleeding at this time. She does state that she has a headache in the left frontal area , patient given Tylenol for pain. - Departure Time of Disposition: 06:50 Departure Disposition: Home Clinical Impression: Epistaxis Condition: Fair Critical Care Time: No Referrals: MICHELE MILLER MD [Primary Care Provider] - Instructions: Nosebleeds (DC) Additional Instructions: Return home. Gage-Synephrine 0.5% 2 sprays in the left naris every 4 hours as needed for one to 2 days if nosebleed. Follow-up with your family doctor. Return for acute distress or for severe symptoms.
[2018-02-15] MEDS ORDERED: TYLENOL 325 MG PO ONE (06:35)
[2018-02-15] MEDS ORDERED: TYLENOL 325 MG ONE (06:38)
== END 2018-02-15 06:55 | disposition home or self-care (01) ==
LOC: ED 05:59
DX: R04.0 Epistaxis (principal)
CPT/HCPCS: 99283; A9270-GY

== ENCOUNTER 2018-12-02 15:34 | Observation (INO) | payer MEDICARE ==
[2018-12-02] MEDS ORDERED: Cardizem IV 50 MG/10 ML IV ONE ×3 (15:55→16:30)
[2018-12-02] MEDS ORDERED: Adenocard IV 6 MG/2 ML IV ONE ×2 (16:01→16:08)
[2018-12-02] MEDS ORDERED: Sodium Chloride 0.9% 1000 ML 1,000 ML ONE (16:07)
[2018-12-02] MEDS ORDERED: LOPRESSOR 5 MG/5 ML INJECTION IV ONE ×2 (16:13→16:14)
--- NOTE | 2018-12-02 16:21 | ERPHSYRPT ---
- History of Present Illness Time Seen by Provider: 12/02/18 15:55 Source: patient, family Exam Limitations: no limitations Physician History: 68 y/o white female with h/o liver transplant and what appears to be a fib on metoprolol and anticoag tx, presents with dizziness and rapid hr that began at approx 1300. pt took all her medications earlier today as prescribed. pt denies cp, has mild soa and denies abd pain. pt did state she is under a lot of stress with a grand daughter passing last week. Timing/Duration: today, hour(s) (3) Associated Symptoms: shortness of breath (mild), weakness, other (dizziness), No nausea, No vomiting, No abdominal pain Allergies/Adverse Reactions: No Known Drug Allergies Allergy (Verified 10/14/16 17:29) Hx Tetanus, Diphtheria Vaccination/Date Given: No Hx Influenza Vaccination/Date Given: No Hx Pneumococcal Vaccination/Date Given: No - Review of Systems Constitutional: No Symptoms Eyes: No Symptoms Ears, Nose, & Throat: No Symptoms Respiratory: Dyspnea (mild), No Cough, No Stridor, No Wheezing Cardiac: Palpitations, Other (dizziness), No Chest Pain Abdominal/Gastrointestinal: No Symptoms, No Abdominal Pain, No Nausea, No Vomiting, No Diarrhea Genitourinary Symptoms: No Symptoms Musculoskeletal: No Symptoms Skin: No Symptoms Neurological: Dizziness Psychological: No Symptoms Endocrine: No Symptoms Hematologic/Lymphatic: No Symptoms Immunological/Allergic: No Symptoms All Other Systems: Reviewed and Negative - Past Medical History Pertinent Past Medical History: Yes Neurological History: No Pertinent History ENT History: No Pertinent History Cardiac History: No Pertinent History Respiratory History: No Pertinent History Endocrine Medical History: Liver Disease Musculoskeletal History: Arthritis GI Medical History: Cirrhosis History: No Pertinent History Psycho-Social History: No Pertinent History Female Reproductive Disorders: No Pertinent History Other Medical History: Hx of R RTC repair - Past Surgical History Past Surgical History: Yes Neuro Surgical History: No Pertinent History Cardiac: No Pertinent History Respiratory: No Pertinent History Gastrointestinal: No Pertinent History Genitourinary: No Pertinent History Musculoskeletal: Orthopedic Surgery Female Surgical History: Hysterectomy Other Surgical History: rotater cuff right shoulder, liver transplant - Social History Smoking Status: Never smoker Exposure to second hand smoke: Yes Drug Use: none Patient Lives Alone: No - Nursing Vital Signs Nursing Vital Signs: Initial Vital Signs Pulse Rate 183 H 12/02/18 15:49 Respiratory Rate 28 H 12/02/18 15:49 Blood Pressure 136/97 12/02/18 15:49 O2 Sat by Pulse Oximetry 96 12/02/18 15:49 Pain Scale Pain Intensity 0 - Physical Exam General Appearance: mild distress, alert, anxiety Eye Exam: PERRL/EOMI, eyes nml inspection Ears, Nose, Throat Exam: normal ENT inspection, moist mucous membranes Neck Exam: normal inspection, non-tender, supple, full range of motion Respiratory Exam: normal breath sounds, lungs clear, airway intact, No chest tenderness, No respiratory distress Cardiovascular Exam: tachycardia Gastrointestinal/Abdomen Exam: soft, normal bowel sounds, No tenderness Pelvic Exam: not done Back Exam: normal inspection, normal range of motion, No CVA tenderness, No vertebral tenderness Extremity Exam: normal inspection, normal range of motion, pelvis stable Neurologic Exam: alert, oriented x 3, cooperative, 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, normal mood/affect, nml cerebellar function, nml station & gait Skin Exam: normal color, warm, dry Lymphatic Exam: No adenopathy SpO2 Interpretation: normal O2 Delivery: Room Air - Course Nursing assessment & vital signs reviewed: Yes EKG Interpreted by Me: RATE (182), Sinus Tach, Left Kirk Deviation, NORMAL QRS, Non-specific ST Changes, Other (no change from ekg dated 12/06/16.) Ordered Tests: Active Orders 24 hr Category Date Time Status CHEST 1 VIEW (PORTABLE) Stat Exams 12/02/18 16:42 Completed CBC W DIFF Stat Lab 12/02/18 16:00 Completed CMP Stat Lab 12/02/18 16:00 Completed MAGNESIUM Stat Lab 12/02/18 16:00 Completed Manual Differential NC Stat Lab 12/02/18 16:00 Completed NT PRO BNP Stat Lab 12/02/18 16:00 Completed PROTIME WITH INR Stat Lab 12/02/18 16:00 Completed TROPONIN Q3H Lab 12/02/18 16:00 Completed TROPONIN Q3H Lab 12/02/18 19:30 Ordered TROPONIN Q3H Lab 12/02/18 22:30 Ordered TROPONIN Q3H Lab 12/03/18 01:30 Ordered TROPONIN Q3H Lab 12/03/18 04:30 Ordered Transfer Order Routine Transfer 12/02/18 Ordered Medication Summary Discontinued Medications Generic Name Dose Route Start Last Admin Trade Name Freq PRN Reason Stop Dose Admin Adenosine 6 mg 12/02/18 16:01 12/02/18 16:27 Adenocard Iv 6 Mg/2 Ml IV 12/02/18 16:02 6 mg STAT ONE Administration Adenosine Confirm 12/02/18 16:08 Adenocard Iv 6 Mg/2 Ml Administered 12/02/18 16:09 Dose 6 mg IV .STK-MED ONE Diltiazem HCl Confirm 12/02/18 15:55 Cardizem Iv 50 Mg/10 Ml Administered 12/02/18 15:56 Dose 50 mg IV .STK-MED ONE Diltiazem HCl 20 mg 12/02/18 16:26 12/02/18 17:10 Cardizem Iv 50 Mg/10 Ml IV 12/02/18 16:27 Not Given STAT ONE Diltiazem HCl Confirm 12/02/18 16:30 Cardizem Iv 50 Mg/10 Ml Administered 12/02/18 16:31 Dose 50 mg IV .STK-MED ONE Sodium Chloride Confirm 12/02/18 16:07 Sodium Chloride 0.9% 1000 Ml Administered 12/02/18 16:08 Dose 1,000 mls @ ud .ROUTE .STK-MED ONE Metoprolol Tartrate Confirm 12/02/18 16:14 Lopressor 5 Mg/5 Ml Injection Administered 12/02/18 16:15 Dose 5 mg IV .STK-MED ONE Metoprolol Tartrate 5 mg 12/02/18 16:13 12/02/18 16:28 Lopressor 5 Mg/5 Ml Injection IV 12/02/18 16:14 5 mg STAT ONE Administration Lab/Rad Data: Laboratory Result Diagrams 12/02/18 16:00 12/02/18 16:00 Laboratory Results 12/02/18 12/02/18 12/02/18 Range/Units 16:00 16:00 16:00 WBC (4.0-10.5) K/mm3 RBC (4.1-5.4) M/mm3 Hgb (12.0-16.0) gm/dl Hct (35-47) % MCV (78-100) fl MCH (26-32) pg MCHC (32-36) g/dl RDW (11.5-14.0) % Plt Count (150-450) K/mm3 MPV (6-9.5) fl PT 11.8 (9.95-12.35) SECONDS INR 1.01 (0.8-3.0) Sodium 139 (137-145) mmol/L Potassium 4.3 (3.5-5.1) mmol/L Chloride 102 (98-107) mmol/L Carbon Dioxide 21 L (22-30) mmol/L Anion Gap 19.2 H (5-15) MEQ/L BUN 20 H (7-17) mg/dL Creatinine 0.79 (0.52-1.04) mg/dL Estimated GFR > 60.0 ML/MIN Glucose 123 H (74-106) mg/dL Calcium 9.9 (8.4-10.2) mg/dL Magnesium 1.8 (1.6-2.3) mg/dL Total Bilirubin 0.30 (0.2-1.3) mg/dL AST 23 (14-36) U/L ALT 14 (0-35) U/L Alkaline Phosphatase 98 (38-126) U/L Troponin I < 0.012 (0.000-0.034) ng/mL NT-Pro-B Natriuret Pep 689 (0-900) pg/mL Serum Total Protein 8.1 (6.3-8.2) g/dL Albumin 4.4 (3.5-5.0) g/dL 12/02/18 Range/Units 16:00 WBC 10.9 H (4.0-10.5) K/mm3 RBC 4.14 (4.1-5.4) M/mm3 Hgb 12.2 (12.0-16.0) gm/dl Hct 36.9 (35-47) % MCV 89.1 (78-100) fl MCH 29.5 (26-32) pg MCHC 33.1 (32-36) g/dl RDW 14.0 (11.5-14.0) % Plt Count 285 (150-450) K/mm3 MPV 9.9 H (6-9.5) fl PT (9.95-12.35) SECONDS INR (0.8-3.0) Sodium (137-145) mmol/L Potassium (3.5-5.1) mmol/L Chloride (98-107) mmol/L Carbon Dioxide (22-30) mmol/L Anion Gap (5-15) MEQ/L BUN (7-17) mg/dL Creatinine (0.52-1.04) mg/dL Estimated GFR ML/MIN Glucose (74-106) mg/dL Calcium (8.4-10.2) mg/dL Magnesium (1.6-2.3) mg/dL Total Bilirubin (0.2-1.3) mg/dL AST (14-36) U/L ALT (0-35) U/L Alkaline Phosphatase (38-126) U/L Troponin I (0.000-0.034) ng/mL NT-Pro-B Natriuret Pep (0-900) pg/mL Serum Total Protein (6.3-8.2) g/dL Albumin (3.5-5.0) g/dL - Progress Progress: improved Progress Note: 12/02/18 16:23 repeat 12 lead ekg at 1611 hr 115, left axis deviation, sinus tachycardia 12/02/18 17:10 3rd ekg at 1641 after both adenosine and lopressor hr 86, nsr, normal axis, persistent left ant fascicular block 12/02/18 17:12 cxr- nonacute cxr. spoke with dr. miller, pts pcp. he accepts pt for observation. no further iv cardiac meds at this time. Counseled pt/family regarding: lab results, diagnosis, need for follow-up, rad results - Departure Departure Disposition: Observation Clinical Impression: Paroxysmal supraventricular tachycardia Condition: Stable Critical Care Time: Yes Critical Care Time(excluding separately billable procedures): 30-74 minutes Referrals: MICHELE MILLER MD [Primary Care Provider] -
[2018-12-02 16:32] LABS: Hematocrit 36.9 % (35-47); Hemoglobin 12.2 gm/dl (12.0-16.0); Mean Cell Volume 89.1 fl (78-100); Mean Corpuscular Hemoglobin 29.5 pg (26-32); Mean Corpuscular Hgb Concent. 33.1 g/dl (32-36); Mean Platelet Volume 9.9 fl (6-9.5); Platelet Count 285 K/mm3 (150-450); Red Blood Count 4.14 M/mm3 (4.1-5.4); White Blood Count 10.9 K/mm3 (4.0-10.5)
[2018-12-02 16:33] LABS: INR 1.01 (0.8-3.0); PROTIME 11.8 SECONDS (9.95-12.35)
[2018-12-02 16:46] LABS: ALBUMIN 4.4 g/dL (3.5-5.0); ALKALINE PHOSPHATASE 98 U/L (38-126); ANION GAP 19.2 MEQ/L (5-15); BLOOD UREA NITROGEN 20 mg/dL (7-17); CHLORIDE 102 mmol/L (98-107); Calcium 9.9 mg/dL (8.4-10.2); Carbon Dioxide 21 mmol/L (22-30); Creatinine 1 0.79 mg/dL (0.52-1.04); Glucose 123 mg/dL (74-106); MAGNESIUM 1.8 mg/dL (1.6-2.3); NT PRO BNP 689 pg/mL (0-900); Potassium 4.3 mmol/L (3.5-5.1); SGOT/AST 23 U/L (14-36); SGPT/ALT 14 U/L (0-35); SODIUM 139 mmol/L (137-145); Total Protein 8.1 g/dL (6.3-8.2)
--- NOTE | 2018-12-02 16:55 | XRAY ---
Indication: Dizziness. Comparison: December 06, 2016. Portable apical lordotic chest again demonstrates right midlung fibrosis/scarring and right hemidiaphragm elevation. No focal infiltrate, consolidation, or large effusion. Heart is not enlarged for AP portable technique. Bony thorax intact again with mild degenerative changes. Impression: Nonacute chest with chronic features.
[2018-12-02] MEDS ORDERED: Zofran 4 MG/2 ML VIAL IV ONE (17:53)
[2018-12-02] MEDS ORDERED: TYLENOL 325 MG PO PRN (17:53)
[2018-12-02] MEDS ORDERED: ULTRAM 50 MG PO PRN (20:09)
[2018-12-02] MEDS: Lopressor 25MG Tab PO SCH (21:19)
[2018-12-02] MEDS ORDERED: Restoril 15 MG PO SCH (22:00)
[2018-12-02 23:11] LABS: Eosinophil 2 % (0.00-3.0); Lymphocytes 24 % (24-44); Monocyte 3 % (0.0-12.0); Neutrophils 71 % (36.0-66.0); Platelet Estimate NORMAL (NORMAL); Total Cells Counted 100
[2018-12-02 23:12] LABS: ANISOCYTOSIS 2+; Poikilocytosis 1+
[2018-12-03 04:58] LABS: Hematocrit 32.3 % (35-47); Hemoglobin 10.3 gm/dl (12.0-16.0); Mean Corpuscular Hemoglobin 29.3 pg (26-32); Mean Corpuscular Hgb Concent. 31.9 g/dl (32-36); Mean Platelet Volume 9.9 fl (6-9.5); Platelet Count 234 K/mm3 (150-450); Red Blood Count 3.51 M/mm3 (4.1-5.4); Red Cell Distribution Width 14.2 % (11.5-14.0); White Blood Count 7.1 K/mm3 (4.0-10.5)
[2018-12-03 05:20] LABS: ANION GAP 13.6 MEQ/L (5-15); BLOOD UREA NITROGEN 19 mg/dL (7-17); CHLORIDE 105 mmol/L (98-107); Calcium 9.2 mg/dL (8.4-10.2); Carbon Dioxide 26 mmol/L (22-30); Creatinine 1 0.84 mg/dL (0.52-1.04); Glucose 87 mg/dL (74-106); Potassium 4.6 mmol/L (3.5-5.1); SODIUM 140 mmol/L (137-145)
[2018-12-03] MEDS ORDERED: TYLENOL 325 MG ONE (06:44)
[2018-12-03 07:21] LABS: ANISOCYTOSIS 1+; Eosinophil 3 % (0.00-3.0); Lymphocytes 42 % (24-44); Monocyte 5 % (0.0-12.0); Neutrophils 50 % (36.0-66.0); Platelet Estimate NORMAL (NORMAL); Total Cells Counted 100
[2018-12-03 08:22] VITALS: O2SAT 95
[2018-12-03] MEDS: Lopressor 25MG Tab PO SCH (09:35)
--- NOTE | 2018-12-03 11:58 | PCM.SSS ---
History of Present Illness - Chief Complaint Chief Complaint: c/o palpitations for 2-3 days History of Present Illness: is a 68 year old female with h/o liver transplant and what appears to be a fib on metoprolol and anticoag tx, presents with dizziness and rapid hr that began at approx 1300. pt took all her medications earlier today as prescribed. pt denies cp, has mild soa and denies abd pain. pt did state she is under a lot of stress with a grand daughter passing last week. - Review of Systems Constitutional: No Fever, No Chills Eyes: No Symptoms Ears, Nose, & Throat: No Symptoms Respiratory: No Cough, No Short Of Breath Cardiac: Palpitations, No Chest Pain, No Edema, No Syncope Abdominal/Gastrointestinal: No Abdominal Pain, No Nausea, No Vomiting, No Diarrhea Genitourinary Symptoms: No Dysuria Musculoskeletal: No Back Pain, No Neck Pain Skin: No Rash Neurological: No Dizziness, No Focal Weakness, No Sensory Changes Psychological: No Symptoms Endocrine: No Symptoms Hematologic/Lymphatic: No Symptoms Immunological/Allergic: No Symptoms Medications & Allergies Home Medications: Home Medication List Acetaminophen 325 mg PO Q6HPRN PRN 12/02/18 [History Confirmed 12/02/18] Aspirin [Aspirin EC] 81 mg PO DAILY 12/02/18 [History Confirmed 12/02/18] Cyanocobalamin/Folic AC/Vit B6 [Folbee Tablet] 1 each PO DAILY 12/02/18 [ History Confirmed 12/02/18] Metoprolol Tartrate 25 mg [Lopressor 25MG Tab] 25 mg PO BID 12/02/18 [ History Confirmed 12/02/18] Mycophenolate Mofetil [Cellcept] 250 mg PO BID 12/02/18 [History Confirmed 12/02] Non-Formulary Drug [Non-Formulary Item] 1 tab PO BID 12/02/18 [History Confirmed 12/02/18] Ranitidine HCl [Zantac 75] 75 mg PO BID 12/02/18 [History Confirmed 12/02/18] Sennosides/Docusate Sodium [Docusate Sodium-Senna Tablet] 1 tab PO BID 12/02/18 [History Confirmed 12/02/18] Tacrolimus 1 mg PO BID 12/02/18 [History Confirmed 12/02/18] Temazepam 15 mg [Restoril 15 MG] 15 mg PO HS 12/02/18 [History Confirmed 12/02/18] Tramadol HCl [Ultram] 50 mg PO [id number] PRN 12/02/18 [History Confirmed 12/02/18] Buspirone HCl 5 mg [Buspar 5 mg] 5 mg PO BID #30 tablet 12/03/18 [Rx] Allergies/Adverse Reactions: Allergies Allergy/AdvReac Type Severity Reaction Status Date / Time No Known Drug Allergies Allergy Verified 12/02/18 18:05 - Past Medical History Past Medical History: Yes Neurological History: No Pertinent History ENT History: No Pertinent History Cardiac History: Arrhythmia Respiratory History: No Pertinent History Endocrine Medical History: Liver Disease Musculoskelatal History: Arthritis GI Medical History: Cirrhosis History: No Pertinent History Pyscho-Social History: No Pertinent History Reproductive Disorders: No Pertinent History Comment: Hx of R RTC repair. Liver transplant 2017 A fib - Female History Hx Last Menstrual Period: post Are you now?: No - Past Surgical History Past Surgical History: Yes Neuro Surgical History: No Pertinent History Cardiac History: No Pertinent History Respiratory Surgery: No Pertinent History GI Surgical History: No Pertinent History Genitourinary Surgical Hx: No Pertinent History Musculskeletal Surgical Hx: Orthopedic Surgery Female Surgical History: Hysterectomy Other Surgical History: rotater cuff right shoulder, liver transplant - Social History Smoking Status: Never smoker Exposure to second hand smoke: Yes Alcohol: None Drug Use: none - Physical Exam Vital Signs: Vital Signs - 24 hr Temp Pulse Resp BP Pulse Ox 12/03/18 08:52 95 12/03/18 08:00 98 F 85 18 137/68 95 12/03/18 04:00 97.7 F 82 17 127/58 94 L 12/02/18 23:59 97.9 F 76 18 99/57 94 L 12/02/18 21:19 95 12/02/18 20:00 98.2 F 83 14 113/75 98 12/02/18 18:29 98.4 F 87 18 139/77 94 L 12/02/18 18:00 94 L 12/02/18 17:09 93 H 18 117/76 95 12/02/18 17:04 87 20 145/87 95 12/02/18 16:19 83 20 121/85 96 12/02/18 16:07 107 H 18 153/98 95 12/02/18 15:49 183 H 28 H 136/97 96 Oxygen-Last 24 hours O2 Percentage 2 Liters = 28% O2 Percentage 2 Liters = 28% O2 Percentage 2 Liters = 28% O2 Percentage 2 Liters = 28% O2 Percentage 2 Liters = 28% General Appearance: no apparent distress, alert Neurologic Exam: alert, oriented x 3, cooperative, normal mood/affect, nml cerebellar function, nml station & gait, sensation nml, No motor deficits Eye Exam: PERRL/EOMI, eyes nml inspection Ears, Nose, Throat Exam: normal ENT inspection, TMs normal, pharynx normal, moist mucous membranes Neck Exam: normal inspection, non-tender, supple, full range of motion Respiratory Exam: normal breath sounds, lungs clear, No respiratory distress Cardiovascular Exam: regular rate/rhythm, normal heart sounds, normal peripheral pulses Gastrointestinal/Abdomen Exam: soft, normal bowel sounds, No tenderness, No mass Back Exam: normal inspection, normal range of motion, No CVA tenderness, No vertebral tenderness Extremity Exam: normal inspection, normal range of motion, pelvis stable Skin Exam: normal color, warm, dry, No rash Lymphatic Exam: No adenopathy Results - Labs Lab/Micro Results: Lab Results-Last 24 Hours 12/02/18 12/02/18 12/02/18 Range/Units 16:00 16:00 16:00 WBC 10.9 H (4.0-10.5) K/mm3 RBC 4.14 (4.1-5.4) M/mm3 Hgb 12.2 (12.0-16.0) gm/dl Hct 36.9 (35-47) % MCV 89.1 (78-100) fl MCH 29.5 (26-32) pg MCHC 33.1 (32-36) g/dl RDW 14.0 (11.5-14.0) % Plt Count 285 (150-450) K/mm3 MPV 9.9 H (6-9.5) fl Segmented Neutrophils 71 H (36.0-66.0) % Lymphocytes (Manual) 24 (24-44) % Monocytes (Manual) 3 (0.0-12.0) % Eosinophils (Manual) 2 (0.00-3.0) % Platelet Estimate NORMAL (NORMAL) RBC Morphology ABNORMAL Poikilocytosis 1+ Anisocytosis 2+ PT 11.8 (9.95-12.35) SECONDS INR 1.01 (0.8-3.0) Sodium 139 (137-145) mmol/L Potassium 4.3 (3.5-5.1) mmol/L Chloride 102 (98-107) mmol/L Carbon Dioxide 21 L (22-30) mmol/L Anion Gap 19.2 H (5-15) MEQ/L BUN 20 H (7-17) mg/dL Creatinine 0.79 (0.52-1.04) mg/dL Estimated GFR > 60.0 ML/MIN Glucose 123 H (74-106) mg/dL Calcium 9.9 (8.4-10.2) mg/dL Magnesium 1.8 (1.6-2.3) mg/dL Total Bilirubin 0.30 (0.2-1.3) mg/dL AST 23 (14-36) U/L ALT 14 (0-35) U/L Alkaline Phosphatase 98 (38-126) U/L Troponin I (0.000-0.034) ng/mL NT-Pro-B Natriuret Pep 689 (0-900) pg/mL Serum Total Protein 8.1 (6.3-8.2) g/dL Albumin 4.4 (3.5-5.0) g/dL 12/02/18 12/02/18 12/02/18 Range/Units 16:00 20:00 23:06 WBC (4.0-10.5) K/mm3 RBC (4.1-5.4) M/mm3 Hgb (12.0-16.0) gm/dl Hct (35-47) % MCV (78-100) fl MCH (26-32) pg MCHC (32-36) g/dl RDW (11.5-14.0) % Plt Count (150-450) K/mm3 MPV (6-9.5) fl Segmented Neutrophils (36.0-66.0) % Lymphocytes (Manual) (24-44) % Monocytes (Manual) (0.0-12.0) % Eosinophils (Manual) (0.00-3.0) % Platelet Estimate (NORMAL) RBC Morphology Poikilocytosis Anisocytosis PT (9.95-12.35) SECONDS INR (0.8-3.0) Sodium (137-145) mmol/L Potassium (3.5-5.1) mmol/L Chloride (98-107) mmol/L Carbon Dioxide (22-30) mmol/L Anion Gap (5-15) MEQ/L BUN (7-17) mg/dL Creatinine (0.52-1.04) mg/dL Estimated GFR ML/MIN Glucose (74-106) mg/dL Calcium (8.4-10.2) mg/dL Magnesium (1.6-2.3) mg/dL Total Bilirubin (0.2-1.3) mg/dL AST (14-36) U/L ALT (0-35) U/L Alkaline Phosphatase (38-126) U/L Troponin I < 0.012 0.013 0.015 (0.000-0.034) ng/mL NT-Pro-B Natriuret Pep (0-900) pg/mL Serum Total Protein (6.3-8.2) g/dL Albumin (3.5-5.0) g/dL 12/03/18 12/03/18 12/03/18 Range/Units 01:29 04:25 04:28 WBC 7.1 (4.0-10.5) K/mm3 RBC 3.51 L (4.1-5.4) M/mm3 Hgb 10.3 L (12.0-16.0) gm/dl Hct 32.3 L (35-47) % MCV 92.0 (78-100) fl MCH 29.3 (26-32) pg MCHC 31.9 L (32-36) g/dl RDW 14.2 H (11.5-14.0) % Plt Count 234 (150-450) K/mm3 MPV 9.9 H (6-9.5) fl Segmented Neutrophils 50 (36.0-66.0) % Lymphocytes (Manual) 42 (24-44) % Monocytes (Manual) 5 (0.0-12.0) % Eosinophils (Manual) 3 (0.00-3.0) % Platelet Estimate NORMAL (NORMAL) RBC Morphology ABNORMAL Poikilocytosis Anisocytosis 1+ PT (9.95-12.35) SECONDS INR (0.8-3.0) Sodium (137-145) mmol/L Potassium (3.5-5.1) mmol/L Chloride (98-107) mmol/L Carbon Dioxide (22-30) mmol/L Anion Gap (5-15) MEQ/L BUN (7-17) mg/dL Creatinine (0.52-1.04) mg/dL Estimated GFR ML/MIN Glucose (74-106) mg/dL Calcium (8.4-10.2) mg/dL Magnesium (1.6-2.3) mg/dL Total Bilirubin (0.2-1.3) mg/dL AST (14-36) U/L ALT (0-35) U/L Alkaline Phosphatase (38-126) U/L Troponin I < 0.012 < 0.012 (0.000-0.034) ng/mL NT-Pro-B Natriuret Pep (0-900) pg/mL Serum Total Protein (6.3-8.2) g/dL Albumin (3.5-5.0) g/dL 12/03/18 Range/Units 04:28 WBC (4.0-10.5) K/mm3 RBC (4.1-5.4) M/mm3 Hgb (12.0-16.0) gm/dl Hct (35-47) % MCV (78-100) fl MCH (26-32) pg MCHC (32-36) g/dl RDW (11.5-14.0) % Plt Count (150-450) K/mm3 MPV (6-9.5) fl Segmented Neutrophils (36.0-66.0) % Lymphocytes (Manual) (24-44) % Monocytes (Manual) (0.0-12.0) % Eosinophils (Manual) (0.00-3.0) % Platelet Estimate (NORMAL) RBC Morphology Poikilocytosis Anisocytosis PT (9.95-12.35) SECONDS INR (0.8-3.0) Sodium 140 (137-145) mmol/L Potassium 4.6 (3.5-5.1) mmol/L Chloride 105 (98-107) mmol/L Carbon Dioxide 26 (22-30) mmol/L Anion Gap 13.6 (5-15) MEQ/L BUN 19 H (7-17) mg/dL Creatinine 0.84 (0.52-1.04) mg/dL Estimated GFR > 60.0 ML/MIN Glucose 87 (74-106) mg/dL Calcium 9.2 (8.4-10.2) mg/dL Magnesium (1.6-2.3) mg/dL Total Bilirubin (0.2-1.3) mg/dL AST (14-36) U/L ALT (0-35) U/L Alkaline Phosphatase (38-126) U/L Troponin I (0.000-0.034) ng/mL NT-Pro-B Natriuret Pep (0-900) pg/mL Serum Total Protein (6.3-8.2) g/dL Albumin (3.5-5.0) g/dL - Radiology Impressions Radiology Exams & Impressions: Radiology Procedures Category Date Time Status CHEST 1 VIEW (PORTABLE) Stat Exams 12/02/18 16:42 Completed Assessment/Plan (1) Paroxysmal supraventricular tachycardia Current Visit: Yes Status: Resolved Code(s): I47.1 - SUPRAVENTRICULAR TACHYCARDIA (2) S/P liver transplant Current Visit: Yes Status: Acute Code(s): Z94.4 - LIVER TRANSPLANT STATUS Hospital Summary - Hospital Course Hospital Course: Chief Complaint Diagnosis Paroxysmal SVT Allergies Allergy/AdvReac Type Severity Reaction Status Date / Time No Known Drug Allergies Allergy Verified 12/02/18 18:05 Vital Signs (Last 24 hours) Temp Pulse Resp BP Pulse Ox 12/03/18 08:52 95 12/03/18 08:00 98 F 85 18 137/68 95 12/03/18 04:00 97.7 F 82 17 127/58 94 L 12/02/18 23:59 97.9 F 76 18 99/57 94 L 12/02/18 21:19 95 12/02/18 20:00 98.2 F 83 14 113/75 98 12/02/18 18:29 98.4 F 87 18 139/77 94 L 12/02/18 18:00 94 L 12/02/18 17:09 93 H 18 117/76 95 12/02/18 17:04 87 20 145/87 95 12/02/18 16:19 83 20 121/85 96 12/02/18 16:07 107 H 18 153/98 95 12/02/18 15:49 183 H 28 H 136/97 96 Home Medications Medication Instructions Recorded Confirmed Last Taken Type Acetaminophen 325 mg PO Q6HPRN PRN 12/02/18 12/02/18 Unknown History Aspirin [Aspirin EC] 81 mg PO DAILY 12/02/18 12/02/18 12/02/18 History Cyanocobalamin/Folic AC/Vit B6 1 each PO DAILY 12/02/18 12/02/18 12/02/18 History [Folbee Tablet] Metoprolol Tartrate 25 mg 25 mg PO BID 12/02/18 12/02/18 12/02/18 History [Lopressor 25MG Tab] Mycophenolate Mofetil [Cellcept] 250 mg PO BID 12/02/18 12/02/18 12/02/18 History Non-Formulary Drug [Non-Formulary 1 tab PO BID 12/02/18 12/02/18 12/02/18 History Item] Ranitidine HCl [Zantac 75] 75 mg PO BID 12/02/18 12/02/18 12/02/18 History Sennosides/Docusate Sodium 1 tab PO BID 12/02/18 12/02/18 12/02/18 History [Docusate Sodium-Senna Tablet] Tacrolimus 1 mg PO BID 12/02/18 12/02/18 12/02/18 History Temazepam 15 mg [Restoril 15 15 mg PO HS 12/02/18 12/02/18 12/01/18 History MG] Tramadol HCl [Ultram] 50 mg PO [id number] PRN 12/02/18 12/02/18 Unknown History Current Medications Generic Name Dose Route Start Last Admin Trade Name [facility] PRN Reason Stop Dose Admin Acetaminophen 650 mg 12/02/18 17:53 12/03/18 06:45 Tylenol 325 Mg PO 01/01/19 17:52 650 mg Q4H PRN PRN Administration PAIN, FEVER, HEADACHE Metoprolol Tartrate 25 mg 12/02/18 22:00 12/03/18 09:35 Lopressor 25mg Tab PO 01/01/19 21:59 25 mg BID KATIA Administration Temazepam 15 mg 12/02/18 22:00 12/02/18 21:19 Restoril 15 Mg PO 01/01/19 21:59 15 mg HS KATIA Administration Tramadol HCl 50 mg 12/02/18 20:09 12/02/18 21:19 Ultram 50 Mg PO 01/01/19 20:08 50 mg BID PRN PRN Administration PAIN Discontinued Medications Generic Name Dose Route Start Last Admin Trade Name Freq PRN Reason Stop Dose Admin Acetaminophen Confirm 12/03/18 06:44 Tylenol 325 Mg Administered 12/03/18 06:45 Dose 650 mg .ROUTE .STK-MED ONE Adenosine 6 mg 12/02/18 16:01 12/02/18 16:27 Adenocard Iv 6 Mg/2 Ml IV 12/02/18 16:02 6 mg STAT ONE Administration Adenosine Confirm 12/02/18 16:08 Adenocard Iv 6 Mg/2 Ml Administered 12/02/18 16:09 Dose 6 mg IV .STK-MED ONE Diltiazem HCl Confirm 12/02/18 15:55 Cardizem Iv 50 Mg/10 Ml Administered 12/02/18 15:56 Dose 50 mg IV .STK-MED ONE Diltiazem HCl 20 mg 12/02/18 16:26 12/02/18 17:10 Cardizem Iv 50 Mg/10 Ml IV 12/02/18 16:27 Not Given STAT ONE Diltiazem HCl Confirm 12/02/18 16:30 Cardizem Iv 50 Mg/10 Ml Administered 12/02/18 16:31 Dose 50 mg IV .STK-MED ONE Sodium Chloride Confirm 12/02/18 16:07 Sodium Chloride 0.9% 1000 Ml Administered 12/02/18 16:08 Dose 1,000 mls @ ud .ROUTE .STK-MED ONE Metoprolol Tartrate Confirm 12/02/18 16:14 Lopressor 5 Mg/5 Ml Injection Administered 12/02/18 16:15 Dose 5 mg IV .STK-MED ONE Metoprolol Tartrate 5 mg 12/02/18 16:13 12/02/18 16:28 Lopressor 5 Mg/5 Ml Injection IV 12/02/18 16:14 5 mg STAT ONE Administration Ondansetron HCl 4 mg 12/02/18 17:53 Zofran 4 Mg/2 Ml Vial IV 12/02/18 17:54 STAT ONE Intake & Output (Last 24 hours) 11/30/18 12/01/18 12/02/18 12/03/18 11:59 11:59 11:59 11:59 Intake Total 910 Balance 910 Weight 67.2 kg Laboratory Results (Last 24 hours) 12/03/18 12/03/18 12/03/18 04:28 04:28 04:25 WBC 7.1 RBC 3.51 L Hgb 10.3 L Hct 32.3 L MCV 92.0 MCH 29.3 MCHC 31.9 L RDW 14.2 H Plt Count 234 MPV 9.9 H Segmented Neutrophils 50 Lymphocytes (Manual) 42 Monocytes (Manual) 5 Eosinophils (Manual) 3 Platelet Estimate NORMAL RBC Morphology ABNORMAL Poikilocytosis Anisocytosis 1+ PT INR Sodium 140 Potassium 4.6 Chloride 105 Carbon Dioxide 26 Anion Gap 13.6 BUN 19 H Creatinine 0.84 Estimated GFR > 60.0 Glucose 87 Calcium 9.2 Magnesium Total Bilirubin AST ALT Alkaline Phosphatase Troponin I < 0.012 NT-Pro-B Natriuret Pep Serum Total Protein Albumin 12/03/18 12/02/18 12/02/18 01:29 23:06 20:00 WBC RBC Hgb Hct MCV MCH MCHC RDW Plt Count MPV Segmented Neutrophils Lymphocytes (Manual) Monocytes (Manual) Eosinophils (Manual) Platelet Estimate RBC Morphology Poikilocytosis Anisocytosis PT INR Sodium Potassium Chloride Carbon Dioxide Anion Gap BUN Creatinine Estimated GFR Glucose Calcium Magnesium Total Bilirubin AST ALT Alkaline Phosphatase Troponin I < 0.012 0.015 0.013 NT-Pro-B Natriuret Pep Serum Total Protein Albumin 12/02/18 12/02/18 12/02/18 16:00 16:00 16:00 WBC RBC Hgb Hct MCV MCH MCHC RDW Plt Count MPV Segmented Neutrophils Lymphocytes (Manual) Monocytes (Manual) Eosinophils (Manual) Platelet Estimate RBC Morphology Poikilocytosis Anisocytosis PT 11.8 INR 1.01 Sodium 139 Potassium 4.3 Chloride 102 Carbon Dioxide 21 L Anion Gap 19.2 H BUN 20 H Creatinine 0.79 Estimated GFR > 60.0 Glucose 123 H Calcium 9.9 Magnesium 1.8 Total Bilirubin 0.30 AST 23 ALT 14 Alkaline Phosphatase 98 Troponin I < 0.012 NT-Pro-B Natriuret Pep 689 Serum Total Protein 8.1 Albumin 4.4 12/02/18 16:00 WBC 10.9 H RBC 4.14 Hgb 12.2 Hct 36.9 MCV 89.1 MCH 29.5 MCHC 33.1 RDW 14.0 Plt Count 285 MPV 9.9 H Segmented Neutrophils 71 H Lymphocytes (Manual) 24 Monocytes (Manual) 3 Eosinophils (Manual) 2 Platelet Estimate NORMAL RBC Morphology ABNORMAL Poikilocytosis 1+ Anisocytosis 2+ PT INR Sodium Potassium Chloride Carbon Dioxide Anion Gap BUN Creatinine Estimated GFR Glucose Calcium Magnesium Total Bilirubin AST ALT Alkaline Phosphatase Troponin I NT-Pro-B Natriuret Pep Serum Total Protein Albumin Orders (Last 24 hours) Category Date Time Status Up With Assistance TOLERATED Activity 12/02/18 17:[address] in Observation ROUTINE Care 12/02/18 17:53 Active Telemetry Q4H Care 12/02/18 17:53 Active Weight,Daily 0600 Care 12/02/18 17:53 Active Cardiac Diet Diet 12/02/18 Dinner Active CHEST 1 VIEW (PORTABLE) Stat Exams 12/02/18 16:42 Completed BMP AM.LAB Lab 12/03/18 04:28 Completed CBC W DIFF AM.LAB Lab 12/03/18 04:25 Completed CBC W DIFF Stat Lab 12/02/18 16:00 Completed CMP Stat Lab 12/02/18 16:00 Completed MAGNESIUM Stat Lab 12/02/18 16:00 Completed Manual Differential NC Routine Lab 12/03/18 04:25 Completed Manual Differential NC Stat Lab 12/02/18 16:00 Completed NT PRO BNP Stat Lab 12/02/18 16:00 Completed PROTIME WITH INR Stat Lab 12/02/18 16:00 Completed TROPONIN Q3H Lab 12/02/18 16:00 Completed TROPONIN Q3H Lab 12/02/18 20:00 Completed TROPONIN Q3H Lab 12/02/18 23:06 Completed TROPONIN Q3H Lab 12/03/18 01:29 Completed TROPONIN Q3H Lab 12/03/18 04:28 Completed Acetaminophen 325 mg [Tylenol 325 mg] Med 12/03/18 06:44 Discontinued 650 mg .ROUTE .STK-MED ONE Acetaminophen 325 mg [Tylenol 325 mg] Med 12/02/18 17:53 Active 650 mg PO Q4H PRN PRN Adenosine 6 mg/2 ml [Adenocard IV 6 MG/2 ML] Med 12/02/18 16:08 Discontinued 6 mg IV .STK-MED ONE Adenosine 6 mg/2 ml [Adenocard IV 6 MG/2 ML] Med 12/02/18 16:01 Discontinued 6 mg IV STAT ONE Diltiazem HCl 50 mg/10 ml [Cardizem IV 50 MG/10 ML Med 12/02/18 16:26 Discontinued *] 20 mg IV STAT ONE Diltiazem HCl 50 mg/10 ml [Cardizem IV 50 MG/10 ML Med 12/02/18 15:55 Discontinued *] 50 mg IV .STK-MED ONE Diltiazem HCl 50 mg/10 ml [Cardizem IV 50 MG/10 ML Med 12/02/18 16:30 Discontinued *] 50 mg IV .STK-MED ONE Metoprolol Tartrate 25 mg [Lopressor 25MG Tab] Med 12/02/18 22:00 Active 25 mg PO BID Metoprolol Tartrate 5 mg/5 ml* [Lopressor 5 mg/5 ml Med 12/02/18 16:14 Discontinued Injection] 5 mg IV .STK-MED ONE Metoprolol Tartrate 5 mg/5 ml* [Lopressor 5 mg/5 ml Med 12/02/18 16:13 Discontinued Injection] 5 mg IV STAT ONE NaCl 0.9% 1000 ml [Sodium Chloride 0.9% 1000 ML] 1,000 Med 12/02/18 16:07 Discontinued ml .ROUTE UD Ondansetron HCl 4 mg/2 ml [Zofran 4 MG/2 ML VIAL] Med 12/02/18 17:53 Discontinued 4 mg IV STAT ONE Temazepam 15 mg [Restoril 15 MG] Med 12/02/18 22:00 Active 15 mg PO HS Tramadol HCl 50 mg [Ultram 50 mg] Med 12/02/18 20:09 Active 50 mg PO BID PRN PRN Pulse Oximetry .continuos RT 12/02/18 17:53 Active - Vitals & Intake/Output Vital Signs: Vital Signs Temperature 98 F 12/03/18 08:00 Pulse Rate 85 12/03/18 08:00 Respiratory Rate 18 12/03/18 08:00 Blood Pressure 137/68 05/16/19 08:00 O2 Sat by Pulse Oximetry 95 12/03/18 08:52 Oxygen-Last Documented O2 Percentage 2 Liters = 28% Intake & Output: Intake & Output 11/30/18 12/01/18 12/02/18 12/03/18 11:59 11:59 11:59 11:59 Intake Total 910 Balance 910 Weight 67.2 kg - Lab Result Diagrams: 12/03/18 04:25 12/03/18 04:28 Lab Results-Last 24 Hrs: Lab Results-Last 24 Hours 12/02/18 12/02/18 12/02/18 Range/Units 16:00 16:00 16:00 WBC 10.9 H (4.0-10.5) K/mm3 RBC 4.14 (4.1-5.4) M/mm3 Hgb 12.2 (12.0-16.0) gm/dl Hct 36.9 (35-47) % MCV 89.1 (78-100) fl MCH 29.5 (26-32) pg MCHC 33.1 (32-36) g/dl RDW 14.0 (11.5-14.0) % Plt Count 285 (150-450) K/mm3 MPV 9.9 H (6-9.5) fl Segmented Neutrophils 71 H (36.0-66.0) % Lymphocytes (Manual) 24 (24-44) % Monocytes (Manual) 3 (0.0-12.0) % Eosinophils (Manual) 2 (0.00-3.0) % Platelet Estimate NORMAL (NORMAL) RBC Morphology ABNORMAL Poikilocytosis 1+ Anisocytosis 2+ PT 11.8 (9.95-12.35) SECONDS INR 1.01 (0.8-3.0) Sodium 139 (137-145) mmol/L Potassium 4.3 (3.5-5.1) mmol/L Chloride 102 (98-107) mmol/L Carbon Dioxide 21 L (22-30) mmol/L Anion Gap 19.2 H (5-15) MEQ/L BUN 20 H (7-17) mg/dL Creatinine 0.79 (0.52-1.04) mg/dL Estimated GFR > 60.0 ML/MIN Glucose 123 H (74-106) mg/dL Calcium 9.9 (8.4-10.2) mg/dL Magnesium 1.8 (1.6-2.3) mg/dL Total Bilirubin 0.30 (0.2-1.3) mg/dL AST 23 (14-36) U/L ALT 14 (0-35) U/L Alkaline Phosphatase 98 (38-126) U/L Troponin I (0.000-0.034) ng/mL NT-Pro-B Natriuret Pep 689 (0-900) pg/mL Serum Total Protein 8.1 (6.3-8.2) g/dL Albumin 4.4 (3.5-5.0) g/dL 12/02/18 12/02/18 12/02/18 Range/Units 16:00 20:00 23:06 WBC (4.0-10.5) K/mm3 RBC (4.1-5.4) M/mm3 Hgb (12.0-16.0) gm/dl Hct (35-47) % MCV (78-100) fl MCH (26-32) pg MCHC (32-36) g/dl RDW (11.5-14.0) % Plt Count (150-450) K/mm3 MPV (6-9.5) fl Segmented Neutrophils (36.0-66.0) % Lymphocytes (Manual) (24-44) % Monocytes (Manual) (0.0-12.0) % Eosinophils (Manual) (0.00-3.0) % Platelet Estimate (NORMAL) RBC Morphology Poikilocytosis Anisocytosis PT (9.95-12.35) SECONDS INR (0.8-3.0) Sodium (137-145) mmol/L Potassium (3.5-5.1) mmol/L Chloride (98-107) mmol/L Carbon Dioxide (22-30) mmol/L Anion Gap (5-15) MEQ/L BUN (7-17) mg/dL Creatinine (0.52-1.04) mg/dL Estimated GFR ML/MIN Glucose (74-106) mg/dL Calcium (8.4-10.2) mg/dL Magnesium (1.6-2.3) mg/dL Total Bilirubin (0.2-1.3) mg/dL AST (14-36) U/L ALT (0-35) U/L Alkaline Phosphatase (38-126) U/L Troponin I < 0.012 0.013 0.015 (0.000-0.034) ng/mL NT-Pro-B Natriuret Pep (0-900) pg/mL Serum Total Protein (6.3-8.2) g/dL Albumin (3.5-5.0) g/dL 12/03/18 12/03/18 12/03/18 Range/Units 01:29 04:25 04:28 WBC 7.1 (4.0-10.5) K/mm3 RBC 3.51 L (4.1-5.4) M/mm3 Hgb 10.3 L (12.0-16.0) gm/dl Hct 32.3 L (35-47) % MCV 92.0 (78-100) fl MCH 29.3 (26-32) pg MCHC 31.9 L (32-36) g/dl RDW 14.2 H (11.5-14.0) % Plt Count 234 (150-450) K/mm3 MPV 9.9 H (6-9.5) fl Segmented Neutrophils 50 (36.0-66.0) % Lymphocytes (Manual) 42 (24-44) % Monocytes (Manual) 5 (0.0-12.0) % Eosinophils (Manual) 3 (0.00-3.0) % Platelet Estimate NORMAL (NORMAL) RBC Morphology ABNORMAL Poikilocytosis Anisocytosis 1+ PT (9.95-12.35) SECONDS INR (0.8-3.0) Sodium (137-145) mmol/L Potassium (3.5-5.1) mmol/L Chloride (98-107) mmol/L Carbon Dioxide (22-30) mmol/L Anion Gap (5-15) MEQ/L BUN (7-17) mg/dL Creatinine (0.52-1.04) mg/dL Estimated GFR ML/MIN Glucose (74-106) mg/dL Calcium (8.4-10.2) mg/dL Magnesium (1.6-2.3) mg/dL Total Bilirubin (0.2-1.3) mg/dL AST (14-36) U/L ALT (0-35) U/L Alkaline Phosphatase (38-126) U/L Troponin I < 0.012 < 0.012 (0.000-0.034) ng/mL NT-Pro-B Natriuret Pep (0-900) pg/mL Serum Total Protein (6.3-8.2) g/dL Albumin (3.5-5.0) g/dL 12/03/18 Range/Units 04:28 WBC (4.0-10.5) K/mm3 RBC (4.1-5.4) M/mm3 Hgb (12.0-16.0) gm/dl Hct (35-47) % MCV (78-100) fl MCH (26-32) pg MCHC (32-36) g/dl RDW (11.5-14.0) % Plt Count (150-450) K/mm3 MPV (6-9.5) fl Segmented Neutrophils (36.0-66.0) % Lymphocytes (Manual) (24-44) % Monocytes (Manual) (0.0-12.0) % Eosinophils (Manual) (0.00-3.0) % Platelet Estimate (NORMAL) RBC Morphology Poikilocytosis Anisocytosis PT (9.95-12.35) SECONDS INR (0.8-3.0) Sodium 140 (137-145) mmol/L Potassium 4.6 (3.5-5.1) mmol/L Chloride 105 (98-107) mmol/L Carbon Dioxide 26 (22-30) mmol/L Anion Gap 13.6 (5-15) MEQ/L BUN 19 H (7-17) mg/dL Creatinine 0.84 (0.52-1.04) mg/dL Estimated GFR > 60.0 ML/MIN Glucose 87 (74-106) mg/dL Calcium 9.2 (8.4-10.2) mg/dL Magnesium (1.6-2.3) mg/dL Total Bilirubin (0.2-1.3) mg/dL AST (14-36) U/L ALT (0-35) U/L Alkaline Phosphatase (38-126) U/L Troponin I (0.000-0.034) ng/mL NT-Pro-B Natriuret Pep (0-900) pg/mL Serum Total Protein (6.3-8.2) g/dL Albumin (3.5-5.0) g/dL - Radiology Exams Ordered Rad Exams-Entire Visit: Radiology Procedures Category Date Time Status CHEST 1 VIEW (PORTABLE) Stat Exams 12/02/18 16:42 Completed - Discharge Discharge Date: 12/03/18 Disposition: Home, Self-Care Condition: Stable Prescriptions: New Buspirone HCl 5 mg [Buspar 5 mg] 5 mg PO BID #30 tablet No Action Mycophenolate Mofetil [Cellcept] 250 mg PO BID Tacrolimus 1 mg PO BID Aspirin [Aspirin EC] 81 mg PO DAILY Sennosides/Docusate Sodium [Docusate Sodium-Senna Tablet] 1 tab PO BID Cyanocobalamin/Folic AC/Vit B6 [Folbee Tablet] 1 each PO DAILY Temazepam 15 mg [Restoril 15 MG] 15 mg PO HS Tramadol HCl [Ultram] 50 mg PO [id number] PRN PRN Reason: Pain Acetaminophen 325 mg PO Q6HPRN PRN PRN Reason: Pain Ranitidine HCl [Zantac 75] 75 mg PO BID Metoprolol Tartrate 25 mg [Lopressor 25MG Tab] 25 mg PO BID Non-Formulary Drug [Non-Formulary Item] 1 tab PO BID Follow up with: MICHELE MILLER MD [Primary Care Provider] - 1 Week
[2018-12-03 12:30] VITALS: BP 108/63; PULSE 73
== END 2018-12-03 13:01 | disposition home or self-care (01) ==
LOC: ED 15:34 → MED SURG 17:45
PROVIDERS: ADMIT General Practice; ATTEND General Practice
DX: I47.1 Supraventricular tachycardia (principal); R42 Dizziness and giddiness; R06.02 Shortness of breath; Z94.4 Liver transplant status; Z79.899 Other long term (current) drug therapy
CPT/HCPCS: 36000; 36415; 71045; 80048; 80053; 83735; 83880; 84484; 85025; 85610; 93268; 94762; 96374; 96375; 99284; G0378; J0153; A9270-GY

== ENCOUNTER 2023-01-09 07:34 | Day surgery (SDC) | payer MEDICARE ==
--- NOTE | 2023-01-08 14:43 | PCM.HP ---
History of Present Illness - Chief Complaint History of Present Illness: is a 72 year old female. CC OC rectal prolapse Ref Manuel Ins MCR PMHx Hepatitis Comments: Liver Transplant PSHx LIVER TRANSPLANT RAIMUNDO-[id number] Rotator cuff surgery FHx father: Comments: Cirrhosis of the liver Soc Hx Tobacco: Never smoker Alcohol: Do not drink Safety: Household Smoke detector / Wear seatbelts Gender: Female Medications (Medication reconciliation last updated 03/19/2022 03:53 PM, [facility] [place] - Performed) potassium chloride ER 10 mEq tablet,extended release (Edited by Terese Augustine on Oct, at 09:04 AM ) ferrous sulfate 325 mg (65 mg iron) tablet (Edited by Rubia Ny on Feb, at 03:52 PM ) Multivitamin 50 Plus tablet (Edited by Rubia Ny on Feb, at 03:52 PM ) aspirin 81 mg tablet,delayed release (Edited by Rubia Ny on Feb, at 03:52 PM ) metoprolol tartrate 25 mg tablet (Edited by Rubia Ny on Feb, at 03:51 PM ) Mag-G 27 mg magnesium (500 mg) tablet (Edited by Rubia Ny on Feb, at 03:51 PM ) solifenacin 5 mg tablet (Edited by Rubia Ny on Feb, at 03:50 PM ) tacrolimus 1 mg capsule, immediate-release (Edited by Rubia Ny on Feb, at 03:50 PM ) gabapentin 300 mg capsule (Edited by Rubia Ny on Feb, at 03:50 PM ) omeprazole 40 mg capsule,delayed release (Edited by Rubia Ny on Feb, at 03:50 PM ) temazepam 15 mg capsule (Edited by Rubia Ny on Feb, at 03:50 PM ) Allergies No known allergies (Allergy reconciliation performed by Terese Augustine 09:05 AM 11 Nov 2022 Last updated) Vitals 11 Nov 2022 - 09:04 AM - recorded by Terese Augustine Ht/Lt: 5' 3" Wt: 135 lbs 0 oz BMI: 23.91 HPI Liver transplant 2017 for cirrhosis and had colonoscopy was done then. No findings on colonoscopy. States she has rectal prolapse and it was caused by her health prior to liver transplant. For 6 months she has had constipation, which has caused the rectal prolapse to present itself again. She occasionally has to push it back in. No blood in stool or low abd pain. She would like to have the prolapse repaired. No family hx of colon cancer. Liver transplant is only abd surgery. She also has been having dysphagia for 4+ months. Pills and foods feel like its getting stuck, occasionally requires her to vomit up the contents other times it will pass. She has to put medication in applesauce to get it to pass. Takes Omeprazole 40mg daily, she does still occasionally experience reflux into back of throat. She has had a dilation of esophagus in the past. States she also had a hiatal hernia repair at time of liver transplant. Does not see cardiology. ROS No chest pain or shortness of breath EXAM General: No acute distress. Well nourished Skin: [place], warm HEENT: Mucosal membranes moist, no scleral icterus Eyes: Anicteric, extra ocular motion intact Neck: No JVD, non-tender Chest: Non labored, no crepitus, CTA Cardiovascular: Regular Rate and Rhythm Abdomen: Soft, non-distended, non-tender, large right upper quadrant scar Extremities: No edema, no discoloration Neurologic: Awake alert and orientated, responds appropriately Psychiatric: Cooperative, appropriate mood and affect Impression: Dysphagia and rectal prolapse Plan Colonoscopy Risk and benefits of procedure discussed at depth with the patient including but not limited to bleeding, perforation, anesthesia, or medical complications. Patient would like to proceed with procedure. Esophagogastroduodenoscopy with possible dilation Risk and benefits of procedure discussed at depth with the patient including but not limited to bleeding, perforation, anesthesia, or medical complications. Patient would like to proceed with procedure. Clearances: Medical, Dr Pitts at is her transplant doctor Stop aspirin 5-7 days MEDICATIONS: sodium sul 1.479 gram-potas ch 0.188 gram-magnes sul 0.225 gram tablet, Use As Prescribed (Prescribed by Joy Walker on Oct, at 09:17 AM) Joy Walker, [facility] 11 Nov 2022 09:24 AM Co-Sign I agree with the contents of this note, and hereby submit my signature as the responsible alliance party and for subsequent billing purposes. Bandar Ni M.D. 11 Nov 2022 09:32 AM Addendum 11 Nov 2022 09:34 AM - Written by Sary Palacios Medications & Allergies Home Medications: Home Medication List Aspirin [Aspirin EC] 81 mg PO DAILY 12/02/18 [History Confirmed 11/19/22] Metoprolol Tartrate 25 mg [Lopressor 25MG Tab] 25 mg PO BID 12/02/18 [History Confirmed 11/19/22] Tacrolimus 1 mg PO BID 12/02/18 [History Confirmed 11/19/22] Temazepam 15 mg [Restoril 15 MG] 15 mg PO HS 12/02/18 [History Confirmed 11/19/22] Ferrous Sulfate 325 mg [Feosol 325 mg] 325 mg PO UD 11/19/22 [History Confirmed 11/19/22] Gabapentin [Neurontin ] 300 mg PO UD 11/19/22 [History Confirmed 11/19/22] Magnesium Oxide [Magnesium] 1 tab PO UD 11/19/22 [History Confirmed 11/19/22] Multivit-Min/Iron/Folic/Lutein [Multivitamin Women 50 Plus Tab] 1 tab PO UD 11/19/22 [History Confirmed 11/19/22] Omeprazole 15 mg PO UD 11/19/22 [History Confirmed 11/19/22] Potassium Chloride 1 tab PO UD 11/19/22 [History Confirmed 11/19/22] Solifenacin Succinate 5 mg PO UD 11/19/22 [History Confirmed 11/19/22] Allergies/Adverse Reactions: Allergies Allergy/AdvReac Type Severity Reaction Status Date / Time No Known Drug Allergies Allergy Verified 11/19/22 07:25 - Past Medical History Past Medical History: Yes Neurological History: No Pertinent History ENT History: No Pertinent History Cardiac History: Arrhythmia Respiratory History: No Pertinent History Endocrine Medical History: Liver Disease Musculoskelatal History: Arthritis GI Medical History: Cirrhosis History: No Pertinent History Pyscho-Social History: No Pertinent History Reproductive Disorders: No Pertinent History Comment: Hx of R RTC repair. Liver transplant 2017 A fib - Past Surgical History Past Surgical History: Yes Neuro Surgical History: No Pertinent History Cardiac History: No Pertinent History Respiratory Surgery: No Pertinent History GI Surgical History: No Pertinent History Genitourinary Surgical Hx: No Pertinent History Musculskeletal Surgical Hx: Orthopedic Surgery Female Surgical History: Hysterectomy Other Surgical History: rotater cuff right shoulder, liver transplant - Social History Smoking Status: Never smoker Exposure to second hand smoke: Yes Alcohol: None Drug Use: none
[2023-01-09] MEDS ORDERED: Lactated Ringers 1,000 ML IV ONE (08:21)
[2023-01-09] MEDS ORDERED: Lactated Ringers 1,000 ML IV SCH (08:30)
[2023-01-09] MEDS ORDERED: DIPRIVAN 200 MG/20 ML IV ONE ×2 (10:35→10:53)
[2023-01-09] MEDS ORDERED: Versed 2 MG/2 ML Injection ONE (10:36)
[2023-01-09 12:13] VITALS: BP 117/55; PULSE 60; O2SAT 99
--- NOTE | 2023-01-09 13:34 | OP ---
SURGERY DATE/TIME: 01/09/2023 1040 PREOPERATIVE DIAGNOSES: 1) Difficulty swallowing. 2) Patient had a recent endoscopic examination and she had symptoms of rectal prolapse. POSTOPERATIVE DIAGNOSES: 1) Severe sigmoid diverticulosis. 2) She has near complete anal colon relaxation or lack of tone. 3) Severe internal hemorrhoids. 4) Suggestion that prolapse probably is occurring. 5) Recurrent hiatal hernia about 40% of the stomach is above the diaphragm. There is a clear band there. 6) Grade 3 over 4 gastroesophageal reflux disease. 7) Esophageal stricture right at pharyngoesophageal junction about size 24. EGD scope actually did dilate the proximal stricture to probably size 38. PROCEDURES: 1) EGD. 2) Colonoscopy complete to cecum. SURGEON: Bandar Ni M.D. RN CLINICAL DOCUMENTATION SPECIALIST: Stephon Ayon M.D., [facility]. ANESTHESIA: MAC. COMPLICATIONS: None. CONDITION: Stable. INDICATION: A patient with the above indications. She also had a liver transplant and since 2017 she has been on medicine consistent with that. DESCRIPTION OF PROCEDURE: She is taken to endoscopy. Left lateral decubitus position. Scope seemed to be hung up just exactly at the size of the tip of the scope just in the pharyngoesophageal junction and as this popped and advanced and looking back at this the esophageal mucosa had split. It looked like quite controlled fashion. The muscular rings were not dilated at all. It was not felt that any additional dilatation was necessary at this time. This was about a size 38. She will be placed on full liquids for 48 hours. The esophagus satisfactory down to gastroesophageal junction. There is grade 3 over 4 gastroesophageal reflux disease. There is about 40% hiatal hernia. Pylorus is normal. Duodenal bulb normal. Second portion normal. Scope looped upon itself. Large hiatal hernia present. Scope withdrawn. Again, this upper area was inspected and appeared satisfactory. Scope withdrawn. On anal digital examination there is no anal tone. Severe internal hemorrhoids were present. They were up in the canal at this time. The scope is advanced to the cecum. There is severe sigmoid diverticulosis. Base of the cecum, ileocecal valve, appendiceal orifice area were normal. Ascending, hepatic, transverse, splenic, descending, sigmoid severe diverticulosis. Rectum severe internal hemorrhoids and I think a portion of the rectum probably is prolapsing. At this point I do not think she is a candidate for rectal prolapse procedure. Scope withdrawn. The patient tolerated the procedure satisfactory.
== END 2023-01-09 12:05 | disposition home or self-care (01) ==
LOC: SDC 07:34
PROVIDERS: ATTEND Surgery
DX: K57.30 Diverticulosis of large intestine without perforation or abscess without bleeding (principal); R13.10 Dysphagia, unspecified; K62.3 Rectal prolapse; K64.8 Other hemorrhoids; K44.9 Diaphragmatic hernia without obstruction or gangrene; K21.9 Gastro-esophageal reflux disease without esophagitis; K22.2 Esophageal obstruction
CPT/HCPCS: J2250; J2704